=== PATIENT | male | born 1950 | race Caucasian/White ===

== ENCOUNTER → 2017-10-16 | Outpatient (CLI) | payer OTHER ==
[~2017-10-16] MED LIST: ABAT250V; ACET325 PO; AMLO5 PO; AMOX875 PO; ASPI81CH PO; Augmentin 875-1 EACH PO; CARV6.25 PO; CLOP75 PO; CODACE60 PO; COLL250TO TOP; Cubicin500 MG/VIA IV; DIPH50 PO; DOXY100 PO; EFFIENT10 MG PO; EFFIENT5 MG PO; EZET10; EZET10 PO; GABA400 PO; HUMULIN N100 UNIT/1 SQ; HYDCHL25 PO; HYDCOR2.5B; HYDR10 PO; Humalog100 UNIT/1 SC; Humulin R500 UNIT/1 SC; IBUP200; INS70/30PN SC; INSLIS75I; INSULANPEN SC; IRBE150 PO; K-Dur20 MEQ PO; LEVO750 PO; LIDO2L MM; Lantus100 UNIT/1 SQ; MELA3; METF500C PO; METR500 PO; MORP15ER PO; MORP30 PO; MORP30ER PO; MORP50ER PO; MORP60ER PO; MORPHINE SULFATE ER PO; NAC600 MG PO; NATTOKINASE; NITR.4SL SL; NITR100CA PO; Novolin R100 UNIT/M; OMEP40CA12 PO; PANT40 PO; SACC250C; TAMS.4ER; TYLECOD3; VALS80; WHEELCHAIR USE
== END | disposition home or self-care (01) ==
LOC: LAB 10:04
DX: N39.0 Urinary tract infection, site not specified (principal)
CPT/HCPCS: 87086

== ENCOUNTER → 2018-02-25 | Outpatient (CLI) | payer OTHER ==
[2018-02-25 16:32] LABS: Source, Urine Clean Catch
[2018-02-25 19:04] LABS: Appearance, Urine Hazy (Clear); Bilirubin, Urine Neg (Neg); Blood, Urine Neg (Neg); Color, Urine Yellow (P-Yellow); Glucose Qualitative, Urine Neg (Neg); Ketones, Urine Neg (Neg); Leukocyte Esterase, Urine 3+ (Neg); Nitrite, Urine Neg (Neg); Protein, Urine 1+ (Neg); Specific Gravity, Urine 1.005 (1.003-1.022); Urobilinogen, Urine NORM (Normal)
[2018-02-25 19:26] LABS: White Blood Cells, Urine 50-100 /hpf (0-5)
[2018-02-25 19:27] LABS: Bacteria Many /hpf; Squamous Epithelial Cells Rare /hpf (Few)
== END | disposition home or self-care (01) ==
LOC: LAB SHORT 16:27 → LAB 16:27
PROVIDERS: Urology
DX: Z09 Encounter for follow-up examination after completed treatment for conditions other than malignant neoplasm (principal); Z87.440 Personal history of urinary (tract) infections
CPT/HCPCS: 81001; 87077; 87086; 87186

== ENCOUNTER 2018-03-03 11:50 | Day surgery (SDC) | payer OTHER ==
[~2018-03-03] VITALS: Ht 172.7 cm; Wt 95.8 kg
[~2018-03-03 11:50] MED LIST changes: -HUMULIN N100 UNIT/1 SQ; -TYLECOD3
[2018-03-03] MEDS ORDERED: HUMULIN N100 UNIT/1 SQ (12:48)
[2018-03-03] MEDS ORDERED: EZET10 PO (12:49)
[2018-03-03] MEDS ORDERED: TYLECOD3 (12:50)
[2018-03-03] MEDS ORDERED: MORP15ER PO (12:51)
== END 2018-03-03 14:43 | disposition home or self-care (01) ==
LOC: ORSCSDS 11:50
PROVIDERS: Internal Medicine Gastroenterology
PROC: 0DBH8ZX Excision of Cecum, Via Natural or Artificial Opening Endoscopic, Diagnostic (ICD-10-PCS; principal; 2018-03-03 13:00)
PROC: 0DBE8ZX Excision of Large Intestine, Via Natural or Artificial Opening Endoscopic, Diagnostic (ICD-10-PCS; principal; 2018-03-03 13:00)
PROC: 0DBL8ZX Excision of Transverse Colon, Via Natural or Artificial Opening Endoscopic, Diagnostic (ICD-10-PCS; principal; 2018-03-03 13:00)
PROC: 0DBK8ZX Excision of Ascending Colon, Via Natural or Artificial Opening Endoscopic, Diagnostic (ICD-10-PCS; principal; 2018-03-03 13:00)
DX: K59.00 Constipation, unspecified (principal); D12.2 Benign neoplasm of ascending colon; D12.3 Benign neoplasm of transverse colon; K63.5 Polyp of colon; K64.8 Other hemorrhoids; R10.31 Right lower quadrant pain; I25.10 Atherosclerotic heart disease of native coronary artery without angina pectoris; Z95.1 Presence of aortocoronary bypass graft; E10.9 Type 1 diabetes mellitus without complications; I73.9 Peripheral vascular disease, unspecified; I10 Essential (primary) hypertension; E78.5 Hyperlipidemia, unspecified; M79.7 Fibromyalgia; Z79.4 Long term (current) use of insulin; Z79.899 Other long term (current) drug therapy; K57.30 Diverticulosis of large intestine without perforation or abscess without bleeding
CPT/HCPCS: 82947; 88305; J1980; J7120

== ENCOUNTER → 2018-07-21 | Outpatient (CLI) | payer OTHER ==
[~2018-07-21] MED LIST changes: +HUMULIN N100 UNIT/1 SQ; +TYLECOD3
[2018-07-21 14:05] LABS: Source, Urine Catheter
[2018-07-21 19:15] LABS: White Blood Cells, Urine TNTC /hpf (0-5)
[2018-07-21 19:16] LABS: Bacteria Many /hpf; Oval Fat Bodies Rare /lpf; Renal Epithelial Rare /hpf (0-Rare); Squamous Epithelial Cells Few /hpf (Few); Transitional Epithelial Cells Few /hpf (0-Rare)
== END | disposition home or self-care (01) ==
LOC: LAB SHORT 14:00 → LAB 14:00 → LAB FUT 02-25 06:50
PROVIDERS: Physician Assistant
DX: Z09 Encounter for follow-up examination after completed treatment for conditions other than malignant neoplasm (principal); Z87.440 Personal history of urinary (tract) infections
CPT/HCPCS: 81015

== ENCOUNTER 2019-02-20 10:41 | Day surgery (SDC) | payer OTHER ==
[~2019-02-20] VITALS: Ht 172.7 cm; Wt 100.4 kg
[~2019-02-20 10:41] MED LIST changes: +BENADRYL25 MG PO; +Coq-10100 MG PO; +LISI20 PO; +LO-DOSE ASPIRIN81 MG PO; +ONDA4ODT MM; +Red Yeast Rice600 MG PO
--- NOTE | 2019-02-20 12:30 | NUR ---
PT STATES HIS MRSA HAS RESOLVED. NO LONGER TAKING MEDICATION FOR CONDITION. PROTOCOL ANSWERS ALL NEGATIVE FOR CONTACT PRECAUTIONS.
--- NOTE | 2019-02-20 12:32 | NUR ---
PT UP TO BATHROOM, USING WALKER PREVIOUSLY USED TO ENTER PREP/RECOVERY AREA. FELT FATIGUED AND WEAK (STATED TO STAFF AFTER RETURN TO BED). HR 102 BP 176/76; BOTH WITH MINOR INCREASE FROM EARLIER, ONLY. STATES THIS IS A REGULAR OCCURRENCE WITH HOSPITAL PRESENCE AND TOOK A LATE PREDNISONE DOSE AT 0535 HOURS THIS MORNING. TOOK HIS OWN BLOOD GLUCOSE = 237, UP FROM 159 AN HOUR AGO. SELF-MEDICATED WITH REGULAR INSULIN 4 UNITS SQ. REPORTED TO PICK-UP NURSE FOR PROCEDURE.
--- NOTE | 2019-02-20 18:51 | NUR ---
SHIFT SUMMARY ASSUMED CARE OF PT AT APPROX 1730 FROM [facility]. PT CAME TO PCU VIA BED AND ACCOMPLANIED BY HEART CENTER NURSE. PT VSS. R GROIN SITE ASSESSED WITH HEART CENTER NURSE AND VERIFIED CONSISTANT DRESSING AND SITE FINDINGS. PT STATES HE STRAIGHT CATHS HIMSELF AT HOME. THIS RN AND CUSTOMER COMPLAINT CLERK PERFORMED STRAIGHT CATH ON PT MAINTAINING STERILE TECHNIQUE AND PT VOIDED 650 CLEAR YELLOW URINE. LUNGS CLEAR TO AUSCULTATION BILAT. BUE PULSE PALP. PT A&OX4, CALL APPROPRIATELY, IS RESTING COMFORTABLY WITHOUT COMPLAINT AT THIS TIME. PT CAN BE DISCHARGED PENDING SUCCESSFUL RECOVERY FROM R GROIN SITE AT APPROX 1915. WILL CONTINUE TO MONITOR UNTIL REPORT GIVEN TO NOC RN. BED CURRENTLY IN LOWEST POSISTION, WHEELS LOCKED, CALL LIGHT IN REACH.
--- NOTE | 2019-02-20 20:02 | NUR ---
ASSUMED CARE OF PT @1900 FROM [facility]. PT VERY ANXIOUS TO BE DC'D, PT VERY IRITABLE WITH STAFF. UPON LOOKING OVER DC INSTRUCTUIONS, PT'S BLOOD THINNER EFFIENT NOT INCLUDED ON MED LIST. CALL MADE TO ANSWERING SERVICE FOR DR PENA. TO CALL BACK, NO RESPONSE. PT SIGNS DC INSTRUDCTIONS, IV REMOVED. PT ASKED TO WAIT UNTIL WWE RECEIVE WORD FROM REGARDING MEDICATION. PT LEAVES, DOES NOT WAIT. DR PENA CALLS, STATING TO CONTINUE MEDICATION PREASCRIBED IN THE AM. PT CALLED OVER TELEPHONE, TOLD WHAT SAID. PT TO START MEDICATION IN THE AM.
== END 2019-02-20 19:55 | disposition home or self-care (01) ==
LOC: MHTC 10:41 → PCU 15:48 → MHTC 19:55
DX: I73.9 Peripheral vascular disease, unspecified (principal); I87.2 Venous insufficiency (chronic) (peripheral); I25.10 Atherosclerotic heart disease of native coronary artery without angina pectoris; E10.42 Type 1 diabetes mellitus with diabetic polyneuropathy; I10 Essential (primary) hypertension; E78.5 Hyperlipidemia, unspecified; Z95.1 Presence of aortocoronary bypass graft; Z86.718 Personal history of other venous thrombosis and embolism; Z88.2 Allergy status to sulfonamides; Z88.5 Allergy status to narcotic agent; Z91.041 Radiographic dye allergy status; Z79.899 Other long term (current) drug therapy; Z79.82 Long term (current) use of aspirin; Z86.73 Personal history of transient ischemic attack (TIA), and cerebral infarction without residual deficits
CPT/HCPCS: 99152; 99153; C1724; C1725; C1760; C1769; C1884; C1887; C1894; C2623; J1200; J1644; J2250; J3010; J7030; Q9967

== ENCOUNTER → 2019-03-27 | Outpatient (CLI) | payer OTHER ==
[2019-03-27 18:24] LABS: Bilirubin, Urine Neg (Neg); Blood, Urine Neg (Neg); Glucose Qualitative, Urine 1+ (Neg); Ketones, Urine Neg (Neg); Leukocyte Esterase, Urine 2+ (Neg); Nitrite, Urine Neg (Neg); Protein, Urine 1+ (Neg); Urobilinogen, Urine NORM (Normal); pH, Urine 6.5 (5.0-8.0)
[2019-03-27 18:40] LABS: Appearance, Urine Hazy (Clear); Color, Urine Yellow (P-Yellow)
[2019-03-27 18:41] LABS: White Blood Cells, Urine 25-50 /hpf (0-5)
[2019-03-27 18:42] LABS: Bacteria Many /hpf; Red Blood Cells, Urine 0-2 /hpf (0-2); Squamous Epithelial Cells Rare /hpf (Few)
== END | disposition home or self-care (01) ==
LOC: LAB SHORT 10:18 → LAB 10:18
PROVIDERS: Physician Assistant
DX: Z09 Encounter for follow-up examination after completed treatment for conditions other than malignant neoplasm (principal); Z87.440 Personal history of urinary (tract) infections
CPT/HCPCS: 81001; 87077; 87086; 87186

== ENCOUNTER → 2019-04-22 | Outpatient (CLI) | payer OTHER ==
[2019-04-22 16:44] LABS: Source, Urine Clean Catch
[2019-04-22 19:35] LABS: Appearance, Urine Hazy (Clear); Bilirubin, Urine Neg (Neg); Blood, Urine 1+ (Neg); Color, Urine Yellow (P-Yellow); Glucose Qualitative, Urine Neg (Neg); Ketones, Urine Neg (Neg); Leukocyte Esterase, Urine 3+ (Neg); Nitrite, Urine Neg (Neg); Protein, Urine 1+ (Neg); Urobilinogen, Urine NORM (Normal)
[2019-04-22 20:08] LABS: White Blood Cells, Urine TNTC /hpf (0-5)
[2019-04-22 20:09] LABS: Bacteria Many /hpf; Red Blood Cells, Urine Not Seen /hpf (0-2); Squamous Epithelial Cells Mod /hpf (Few)
== END ==
LOC: LAB 15:13 → LAB SHORT 15:13
PROVIDERS: Family Medicine
DX: N39.0 Urinary tract infection, site not specified (principal)
CPT/HCPCS: 81001

== ENCOUNTER → 2019-05-26 | Outpatient (CLI) | payer OTHER ==
[2019-05-26 19:07] LABS: Appearance, Urine Hazy (Clear); Bilirubin, Urine Neg (Neg); Blood, Urine 1+ (Neg); Color, Urine Yellow (P-Yellow); Glucose Qualitative, Urine Neg (Neg); Ketones, Urine Neg (Neg); Leukocyte Esterase, Urine 3+ (Neg); Nitrite, Urine Neg (Neg); Protein, Urine Neg (Neg); Specific Gravity, Urine 1.005 (1.003-1.022); Urobilinogen, Urine NORM (Normal)
[2019-05-26 19:14] LABS: Red Blood Cells, Urine 0-2 /hpf (0-2); White Blood Cells, Urine 50-100 /hpf (0-5)
[2019-05-26 19:15] LABS: Bacteria Many /hpf; Squamous Epithelial Cells Few /hpf (Few)
== END ==
LOC: LAB 12:05 → LAB SHORT 12:05
PROVIDERS: Family Medicine
DX: N39.0 Urinary tract infection, site not specified (principal)
CPT/HCPCS: 81001; 87077; 87086; 87186

== ENCOUNTER → 2020-01-13 | Outpatient (CLI) | payer OTHER ==
[2020-01-13 19:46] LABS: Appearance, Urine Clear (Clear); Bilirubin, Urine Neg (Neg); Blood, Urine Neg (Neg); Color, Urine Yellow (P-Yellow); Glucose Qualitative, Urine 3+ (Neg); Ketones, Urine Neg (Neg); Leukocyte Esterase, Urine 2+ (Neg); Nitrite, Urine Neg (Neg); Protein, Urine 1+ (Neg); Urobilinogen, Urine NORM (Normal); pH, Urine 6.5 (5.0-8.0)
[2020-01-13 19:54] LABS: Red Blood Cells, Urine 0-2 /hpf (0-2); White Blood Cells, Urine 25-50 /hpf (0-5)
[2020-01-13 19:55] LABS: Bacteria Rare /hpf; Squamous Epithelial Cells Rare /hpf (Few); Transitional Epithelial Cells Rare /hpf (0-Rare)
== END | disposition home or self-care (01) ==
LOC: LAB SHORT 13:50 → OLS 13:50
PROVIDERS: Urology
DX: N39.0 Urinary tract infection, site not specified (principal)
CPT/HCPCS: 81001; 87077; 87086; 87186

== ENCOUNTER 2020-01-20 00:20 | Day surgery (SDC) | payer OTHER ==
[~2020-01-20 00:20] MED LIST changes: +ACETAMINOPHEN-CO5 ML PO; +FREESTYLE LIBR1 EAC2 MC; +Lisinopril-Hct1 EAC4 PO; +ONDA4; +ZESTORETIC 20-121 EA PO
[2020-01-20 14:47] LABS: Creatinine, Blood 1.08 mg/dL (0.60-1.20); Gentamicin, Trough 1.7 ug/mL (0.0-1.9)
--- NOTE | 2020-01-20 15:24 | NUR ---
SPOKE WITH PHARMASIST ABOUT PTS LAB VALUES. PT CHOSE TO COME IN DAILY FOR A LOWER DOSE OF GENTAMYACIN. PT TO GO HOME WITH NO DOSE THIS PM.
== END 2020-01-20 15:12 | disposition home or self-care (01) ==
LOC: ATC 00:20
PROVIDERS: Urology
DX: N39.0 Urinary tract infection, site not specified (principal); Z88.2 Allergy status to sulfonamides; Z88.8 Allergy status to other drugs, medicaments and biological substances; Z88.1 Allergy status to other antibiotic agents; Z91.041 Radiographic dye allergy status; N31.2 Flaccid neuropathic bladder, not elsewhere classified; N52.8 Other male erectile dysfunction
CPT/HCPCS: 80170; 82565; J1580

== ENCOUNTER 2020-01-21 00:11 | Day surgery (SDC) | payer OTHER | END 2020-01-21 15:23 | disposition home or self-care (01) | LOC: ATC 00:11 | DX: N39.0 Urinary tract infection, site not specified (principal); N31.9 Neuromuscular dysfunction of bladder, unspecified; N52.8 Other male erectile dysfunction; Z79.4 Long term (current) use of insulin; Z79.82 Long term (current) use of aspirin; Z79.891 Long term (current) use of opiate analgesic; Z79.899 Other long term (current) drug therapy; Z87.440 Personal history of urinary (tract) infections; Z88.2 Allergy status to sulfonamides; Z88.3 Allergy status to other anti-infective agents; Z88.5 Allergy status to narcotic agent; Z88.6 Allergy status to analgesic agent | CPT/HCPCS: 96365; J1580 ==

== ENCOUNTER 2020-01-23 00:41 | Day surgery (SDC) | payer OTHER | END 2020-01-23 23:26 | disposition home or self-care (01) | LOC: ATC 00:41 | DX: N39.0 Urinary tract infection, site not specified (principal); Z88.2 Allergy status to sulfonamides; N31.2 Flaccid neuropathic bladder, not elsewhere classified; N52.8 Other male erectile dysfunction; Z88.5 Allergy status to narcotic agent; Z88.8 Allergy status to other drugs, medicaments and biological substances; Z88.1 Allergy status to other antibiotic agents; Z91.041 Radiographic dye allergy status ==

== ENCOUNTER 2020-01-24 00:19 | Day surgery (SDC) | payer OTHER ==
[2020-01-24 14:53] LABS: Creatinine, Blood 1.02 mg/dL (0.60-1.20); Gentamicin, Trough 0.4 ug/mL (0.0-1.9)
== END 2020-01-24 16:25 | disposition home or self-care (01) ==
LOC: ATC 00:19
PROVIDERS: Urology
DX: N39.0 Urinary tract infection, site not specified (principal); N31.2 Flaccid neuropathic bladder, not elsewhere classified; N52.8 Other male erectile dysfunction; Z88.5 Allergy status to narcotic agent; Z88.2 Allergy status to sulfonamides; Z88.8 Allergy status to other drugs, medicaments and biological substances; Z88.1 Allergy status to other antibiotic agents; Z91.041 Radiographic dye allergy status
CPT/HCPCS: 80170; 82565; J1580

== ENCOUNTER 2020-01-25 00:06 | Day surgery (SDC) | payer OTHER | END 2020-01-25 23:02 | disposition home or self-care (01) | LOC: ATC 00:06 | DX: N39.0 Urinary tract infection, site not specified (principal); E11.9 Type 2 diabetes mellitus without complications; Z79.4 Long term (current) use of insulin; Z88.5 Allergy status to narcotic agent; Z88.2 Allergy status to sulfonamides; Z88.8 Allergy status to other drugs, medicaments and biological substances; Z88.1 Allergy status to other antibiotic agents; Z91.041 Radiographic dye allergy status; N31.2 Flaccid neuropathic bladder, not elsewhere classified; Z87.440 Personal history of urinary (tract) infections; N52.8 Other male erectile dysfunction ==

== ENCOUNTER 2020-01-27 02:00 | Day surgery (SDC) | payer OTHER | END 2020-01-27 22:45 | disposition home or self-care (01) | LOC: ATC 02:00 | DX: N39.0 Urinary tract infection, site not specified (principal); E11.9 Type 2 diabetes mellitus without complications; N31.2 Flaccid neuropathic bladder, not elsewhere classified; N52.8 Other male erectile dysfunction; Z88.8 Allergy status to other drugs, medicaments and biological substances; Z88.2 Allergy status to sulfonamides; Z88.1 Allergy status to other antibiotic agents ==

== ENCOUNTER → 2021-03-21 | Outpatient (CLI) | payer OTHER | END | disposition home or self-care (01) | LOC: LAB 18:00 → LAB SHORT 18:00 | DX: L97.515 Non-pressure chronic ulcer of other part of right foot with muscle involvement without evidence of necrosis (principal) | CPT/HCPCS: 87070; 87075; 87077; 87186; 87205 ==

== ENCOUNTER 2021-09-01 00:20 | Inpatient (IN) | payer OTHER, MEDICARE ==
[~2021-09-01] VITALS: Ht 172.7 cm; Wt 88.4 kg
[~2021-09-01 00:20] MED LIST changes: +MORPHINE SULFAT15 M1 PO; -ONDA4; +ONDA4 PO; -ZESTORETIC 20-121 EA PO
[2021-09-01 00:35] LABS: Calcium, Ionized (POC) 1.15 mmol/L (1.10-1.46); Chloride (POC) 96 mmol/L (98-108); Creatinine (POC) 1.4 mg/dL (0.8-1.3); Glucose (ISTAT POC) 439 mg/dL (70-99); Potassium (POC) 4.7 mmol/L (3.5-5.5); Sodium (POC) 129 mmol/L (135-148); Total CO2 (POC) 25 mmol/L (21-32)
[2021-09-01 00:43] LABS: BASOPHILS ABSOLUTE AUTO 0.03 K/mm3 (0.00-0.23); BASOPHILS PERCENT AUTO 0 % (0-2); EOSINOPHILS ABSOLUTE AUTO 0.25 K/mm3 (0.00-0.68); EOSINOPHILS PERCENT AUTO 3 % (0-6); IMMATURE GRAN ABSOLUTE AUTO 0.04 K/mm3 (0.00-0.10); IMMATURE GRAN PERCENT AUTO 1 % (0-1); LYMPHOCYTES ABSOLUTE AUTO 2.64 K/mm3 (0.84-5.20); LYMPHOCYTES PERCENT AUTO 31 % (21-46); MONOCYTES ABSOLUTE AUTO 0.83 K/mm3 (0.16-1.47); MONOCYTES PERCENT AUTO 10 % (4-13); Mean Corpuscular HGB 30.2 pg (26.0-34.0); Mean Corpuscular HGB Conc 33.3 g/dL (31.5-36.5); Mean Corpuscular Volume 91 fL (80-100); Mean Platelet Volume 8.6 fL (9.1-12.4); NEUTROPHILS ABSOLUTE AUTO 4.72 K/mm3 (1.96-9.15); NEUTROPHILS PERCENT AUTO 55 % (41-73); Platelet Count 288 K/mm3 (150-400); RDW Coefficient Variation 12.7 % (11.7-14.2); RDW Standard Deviation 42.4 fL (35.1-46.3); Red Blood Cell Count 4.96 M/mm3 (4.30-5.90); White Blood Cell Count 8.51 K/mm3 (4.00-11.30)
[2021-09-01 00:52] LABS: PCO2 Arterial 46.2 mmHg (35-45); PO2 Arterial 64.8 mmHg (80-100); pH Blood Arterial 7.34 (7.35-7.45)
[2021-09-01 00:57] LABS: D-Dimer, Quantitative 1.05 mg/L FEU (0.00-0.52)
[2021-09-01 01:03] LABS: Albumin, Blood 3.2 g/dL (3.4-5.0); Albumin/Globulin Ratio 0.7 (0.8-1.8); Bilirubin, Total 0.3 mg/dL (0.1-1.0); Bun/Creatinine Ratio 18.2 (12.0-20.0); Calcium, Blood 8.6 mg/dL (8.5-10.1); Creatinine, Blood 1.32 mg/dL (0.60-1.20); Globulin, Blood 4.7 g/dL (2.2-4.0); Potassium, Blood 4.6 mmol/L (3.5-5.5); Total Protein, Blood 7.9 g/dL (6.4-8.2); Troponin I 0.044 ng/mL (0.000-0.040)
[2021-09-01 01:34] LABS: Anti-Xa UFH, PHA Monitoring <0.10 IU/mL
[2021-09-01] MEDS ORDERED: RANOLAZINE ER500 M2 PO (01:35)
[2021-09-01] MEDS ORDERED: ISOSORBIDE MONO30 MG PO (01:36)
--- NOTE | 2021-09-01 04:25 | NUR ---
PT ARRIVES FROM EMERGENCY DEPARTMENT, WEARING CPAP SET AT 10 WITH 35% FIO2. PT STATES HIS PAIN, THAT COMES FROM HIS LEFT SHOULDER. PT VERY TALKATIVE, OPINIONATED. CONCERNED FOR HIS HE CARES FOR HER AT HOME. LEGS WITH STASIS ULCER SKIN, RIGHT FOOT WITH WOUND THAT IS CARING FOR. HEPARIN GTT INFUSING AT 15U/KG/HR. HOOD PATENT WITH >1L OUTPUT. PT UNDERSTANDS HE IS CURRENTLY NPO FOR PROCEDURE LATER THIS AM.
[2021-09-01 04:36] LABS: SARS-Cov-2 (COVID-19) PCR, MMC NEGATIVE (NEGATIVE)
[2021-09-01 06:36] LABS: BASOPHILS ABSOLUTE AUTO 0.03 K/mm3 (0.00-0.23); BASOPHILS PERCENT AUTO 0 % (0-2); EOSINOPHILS ABSOLUTE AUTO 0.03 K/mm3 (0.00-0.68); EOSINOPHILS PERCENT AUTO 0 % (0-6); Hematocrit 37.5 % (37.0-53.0); Hemoglobin 12.9 g/dL (13.5-17.5); IMMATURE GRAN ABSOLUTE AUTO 0.03 K/mm3 (0.00-0.10); IMMATURE GRAN PERCENT AUTO 0 % (0-1); LYMPHOCYTES PERCENT AUTO 14 % (21-46); MONOCYTES ABSOLUTE AUTO 0.87 K/mm3 (0.16-1.47); MONOCYTES PERCENT AUTO 11 % (4-13); Mean Corpuscular HGB 30.6 pg (26.0-34.0); Mean Corpuscular HGB Conc 34.4 g/dL (31.5-36.5); Mean Corpuscular Volume 89 fL (80-100); Mean Platelet Volume 8.6 fL (9.1-12.4); NEUTROPHILS ABSOLUTE AUTO 5.76 K/mm3 (1.96-9.15); NEUTROPHILS PERCENT AUTO 74 % (41-73); Platelet Count 227 K/mm3 (150-400); RDW Coefficient Variation 12.6 % (11.7-14.2); RDW Standard Deviation 41.4 fL (35.1-46.3); Red Blood Cell Count 4.22 M/mm3 (4.30-5.90); White Blood Cell Count 7.82 K/mm3 (4.00-11.30)
--- NOTE | 2021-09-01 06:48 | NUR ---
CALLED IN TO CHECK ON THE STATUS OF THE PATIENT, RELAYING THAT HE WILL NOT BE SEEING HIM TODAY THAT WILL BE IN. THEN PHONED IN FOR AN UPDATE ON THE PATIENT, ASKING FOR THE ECHO TO BE DONE FIRST THING AND SHE WOULD BE IN TO EVALUATE THE PATIENT. THIS INFORMATION SHARED WITH DILEEP, HE IS ANXIOUS ABOUT HAVING A PROCEDURE DONE, BUT HE SAYS HE HAS BEAT THE ODDS ON SEVERAL OCCASIONS T/O HIS LIFE.
[2021-09-01 07:08] LABS: Alanine Aminotransfer (ALT/SGP 26 U/L (12-78); Albumin, Blood 2.6 g/dL (3.4-5.0); Albumin/Globulin Ratio 0.7 (0.8-1.8); Alk Phos 89 U/L (50-136); Anion Gap 6 mmol/L (6-16); Aspartate Aminotrans (AST/SGOT 122 U/L (12-37); Bilirubin, Total 0.3 mg/dL (0.1-1.0); Blood Urea Nitrogen 26 mg/dL (8-24); CO2, Blood 27 mmol/L (21-32); Calcium, Blood 8.4 mg/dL (8.5-10.1); Chloride, Blood 99 mmol/L (98-108); Creatinine, Blood 1.18 mg/dL (0.60-1.20); Globulin, Blood 3.9 g/dL (2.2-4.0); Glomerular Filtration Rate >60 (60-); Glucose, Blood 145 mg/dL (70-99); Potassium, Blood 4.7 mmol/L (3.5-5.5); Sodium, Blood 132 mmol/L (136-145); Total Protein, Blood 6.5 g/dL (6.4-8.2)
--- NOTE | 2021-09-01 07:30 | NUR ---
ASSUMPTION OF CARE PT ALERT AND ORIENTED. PT CURRENTLY ON CPAP WITH FIO2 35%. HOOD REMAINS IN PLACE DRAINING CLEAR/YELLOW URINE. PT DENIES CURRENT L SHOULDER OR CHEST PAIN. PT HAS DRESSING ON R FOOT. PT STS HE HAS HAD A WOUND FOR "AWHILE". SEE SHIFT ASSESSMENT.
--- NOTE | 2021-09-01 13:34 | NUR ---
JAVA ENGINEER JAVA ENGINEER STAFF TO ROOM. PT TAKEN TO JAVA ENGINEER VIA GURMACY WITH FOLLOWING.
--- NOTE | 2021-09-01 14:30 | NUR ---
PT BACK TO ROOM HYDRO MECHANIC STAFF RETURN PT BACK TO ROOM. PT IS TACHYPNEIC AND ON BIPAP. PT HYPERTENSIVE WITH SBP IN 200S. PT ANXIOUS AND EXPRESSES "WANTING TO GET HIS BREATHING DOWN". PT PALE, SKIN IS CLAMMY AND COOL TO TOUCH. DR SIU AT BEDSIDE FOR EVAL, ORDERS RECEIVED. PT MEDICATED WITH ATIVAN, NITRO GGT STARTED. EKG DONE. ULTRASOUND PERFORMED BY DR SIU. PER HYDRO MECHANIC STAFF, PT BECAME SOB AND SATS DECREASED AND BIPAP WAS NEEDED. PROCEDURE WAS NOT PERFORMED. PLAN TO RESCHEDULE TOMORROW. PT BP DECREASED TO NORMOTENSIVE RANGE WITH NITRO GTT CONTINUING. PT RESPIRATORY RATE HAS DECREASED. DO NOT TREND TROPONINS PER DR BOOTH, NO ADDITIONAL ORDERS AT THIS TIME.
[2021-09-01 16:50] LABS: Base Excess Venous -0.7 mmol/L; PCO2 Venous 55.3 mmHg (38-42); PO2 Venous 33.8 mmHg (38-42)
[2021-09-01 16:51] LABS: pH Blood Venous 7.28 (7.34-7.37)
--- NOTE | 2021-09-01 17:35 | NUR ---
SHIFT SUMMARY PT REMAINS ON BIPAP 18/10 WITH FIO2 30%. PT ON NITRO GTT AT 2.5MCG/HR AND HEPARIN AT 14UNITS/HR. PT WILL NOT OPEN EYES, BUT WITH STERNAL RUB PT YELLS OUT AND REACHES TOWARD CHEST. PT THEN FOLLOWS COMMANDS, ANSWERS QUESTIONS BY NODDING/SHAKING HEAD BUT CONTINUES TO REFUSE TO OPEN EYES. PT DENIES PAIN OR DISCOMFORT AND NODS HEAD THAT HE IS FEELING BETTER. RR REMAINS IN 20S-30S. HOOD CONTINUES TO DRAIN CLEAR/YELLOW URINE. WILL REPORT TO ONCOMING RN.
--- NOTE | 2021-09-01 21:53 | NUR ---
UPDATE: LAB LAB HAS NOT BEEN BY TO DRAW 2130 BMP, SO FOLLOWED UP WITH LAB WHO STATES THEY ARE RUNNING BEHIND AND SHOULD BE HERE TO DRAW IT SOON.
[2021-09-01 22:29] LABS: Bun/Creatinine Ratio 21.9 (12.0-20.0); Calcium, Blood 9.4 mg/dL (8.5-10.1); Creatinine, Blood 1.37 mg/dL (0.60-1.20)
[2021-09-01 22:32] LABS: Potassium, Blood 4.2 mmol/L (3.5-5.5)
--- NOTE | 2021-09-01 22:48 | NUR ---
ASSUME CARE: PT IS LYING IN BED WITH EYES CLOSED AND APPEARS TO BE RESTING. HE AROUSES TO VOICE, WILL OPEN HIS EYES BRIEFLY, DOES FOLLOW COMMANDS, AND WILL NOD HIS HEAD TO QUESTIONS. HE IS ON BIPAP 18/10 AT 30% AND SATING >95%. HR IS RUNNING IN THE 80-90'S AND BP WNL. HEPARIN INFUSING AT 14UNITS/KG/HR AND NITRO AT 5MCG/MIN. HOOD IN PLACE DRAINING CLEAR YELLOW URINE TO GRAVITY. HIS LEFT GREATER TOE IS MISSING AND HAS A WOUND ON THE RIGHT FOOT WITH GAUZE DRESSING INTACT. PLAN TO GO BACK TO [facility]TERPR[facility] APPLICATION ADMINISTRATOR IN THE AM. SEE SHIFT ASSESSMENT FOR DETAILS.
--- NOTE | 2021-09-02 01:15 | NUR ---
UPDATE: ANXIETY AND BS PT IS COMPLAINING OF ANXIETY AND CLAUSTROPHOBIA W/ THE BIPAP MASK. HE ALSO STATES THE FENTANYL DID NOT HELP WITH HIS ABDOMINAL PAIN AND HE IS NOW HAVING LEFT ARM PAIN. PT CHECKED HIS BLOOD SUGAR ON HIS OWN IMPLANTED GLUCCOMETER AND IT SHOWED 407. WHEN CHECKED ON OUR MACHINE, IT SHOWED 378. SPOKE WITH DR. MONTENEGRO WHO ORDERED A 1 TIME DOES OF ATIVAN 1MG. SHE STATES SHE WILL REVIEW THE CHART BEFORE ORDERING BLOOD SUGAR COVERAGE.
--- NOTE | 2021-09-02 02:36 | NUR ---
UPDATE: EKG CHANGES NOTICED INCREASED ST ELEVATION SO PLACED PRN EKG FOR RHTHYM CHANGES ORDER PER RN [facility]. EKG READS "MARKED ST ABNORMALILTY, POSSIBLE INFEROLATERAL SUBENDOCARDIAL INJURY". INFORMED DR. BOOTH WHO STATES THE PLAN IS STILL TO TAKE PT BACK TO THE DENT REMOVER IN THE AM. SHE GAVE ORDERS FOR ATIVAN 1MG PRN ANXIETY Q4HRS.
[2021-09-02 03:53] LABS: BASOPHILS ABSOLUTE AUTO 0.01 K/mm3 (0.00-0.23); BASOPHILS PERCENT AUTO 0 % (0-2); EOSINOPHILS ABSOLUTE AUTO 0.04 K/mm3 (0.00-0.68); EOSINOPHILS PERCENT AUTO 0 % (0-6); Hematocrit 42.3 % (37.0-53.0); Hemoglobin 14.3 g/dL (13.5-17.5); IMMATURE GRAN ABSOLUTE AUTO 0.07 K/mm3 (0.00-0.10); IMMATURE GRAN PERCENT AUTO 1 % (0-1); LYMPHOCYTES PERCENT AUTO 5 % (21-46); MONOCYTES PERCENT AUTO 9 % (4-13); Mean Corpuscular HGB 30.4 pg (26.0-34.0); Mean Corpuscular HGB Conc 33.8 g/dL (31.5-36.5); Mean Corpuscular Volume 90 fL (80-100); Mean Platelet Volume 8.8 fL (9.1-12.4); NEUTROPHILS PERCENT AUTO 85 % (41-73); Platelet Count 223 K/mm3 (150-400); RDW Coefficient Variation 12.8 % (11.7-14.2); RDW Standard Deviation 41.7 fL (35.1-46.3); Red Blood Cell Count 4.71 M/mm3 (4.30-5.90); White Blood Cell Count 10.32 K/mm3 (4.00-11.30)
[2021-09-02 04:08] LABS: Bun/Creatinine Ratio 23.2 (12.0-20.0); Calcium, Blood 8.8 mg/dL (8.5-10.1); Creatinine, Blood 1.38 mg/dL (0.60-1.20); Magnesium, Blood 1.7 mg/dL (1.6-2.4); Potassium, Blood 4.2 mmol/L (3.5-5.5)
--- NOTE | 2021-09-02 06:28 | NUR ---
UPDATE: CHEST PAIN PT IS COMPLAINING OF CHEST PAIN SO INCREASED NITRO TO 15MCG/MIN. SPOKE WITH DR. BOOTH WHO STATES TO GIVE 1 NITRO SUBLINGUAL, ATIVAN 1MG, AND A STAT EKG.
--- NOTE | 2021-09-02 06:46 | NUR ---
SHIFT SUMMARY: PT LYING IN BED W/ EYES CLOSED WEARING BIPAP MASK W/ SETTINGS AT 18/10 AT 30% SATING 95%. HE IS EASILY AROUSABLE AND A&0 X4. AT AROUND 0625 HE COMPLAINED OF CHEST PAIN SO NITRO WAS INCREASED TO 15MCG/MIN AND HEPARIN CONTINUES TO INFUSE AT 14UNIT/KG/HR. SPOKE WITH DR. BOOTH WHO ORDERED A STAT EKG AND TO GIVE ATIVAN 1MG AND NITRO SUBLINGUAL. HR IS IN THE LOW 100'S AND BP IS 108/49. HOOD IN PLACE AND STILL DRAINING CLEAR YELLOW URINE TO GRAVITY. PLAN IS TO RETURN TO THE MANAGER TEST AT 0800. WILL REPORT TO ONCOMING RN WHEN AVAILABLE.
--- NOTE | 2021-09-02 07:15 | NUR ---
ASSUMPTION OF CARE PT REMAINS ON BIPAP 18/10 WITH FIO2 30%. PT TOLERATING MASK WELL. PT RECEIVING HEPARIN 14UNITS/HR ADJUSTED PER PHARMACY, AND NITRO GTT 15MCG/MIN. CONTINUOUS CARDIAC MONITORING SHOWS INCREASE IN ST ELEVATION. SBP 130S. PT DENIES PAIN OR DISCOMFORT AT THIS TIME. DR BOOTH AT BEDSIDE FOR EVAL. DOPPLER USED FOR POPLITEAL PULSES. UNABLE TO DETECT AUDIBLE DOPPLER PEDAL PULSES. PROVIDER EXPECTS PROCEDURE TO START AROUND 08:00.
--- NOTE | 2021-09-02 08:00 | NUR ---
GLUCOSE & EXECUTIVE VICE PRESIDENT AND CHIEF FINANCIAL OFFICER CBG >400 THIS AM. CALLED ATTENDING PHYSICIAN FOR INCREASED INSULIN ORDERS. ORDERS RECEIVED AND PT MEDICATED PER EMAR. EXECUTIVE VICE PRESIDENT AND CHIEF FINANCIAL OFFICER AT BEDSIDE TO TAKE PT. PT REMAINS A&O, ANSWERS QUESTIONS AND FOLLOWS COMMANDS. HEPARIN AND NITRO TO GO WITH PT. PT LEFT DEPARTMENT APPROX 08:10.
--- NOTE | 2021-09-02 13:30 | NUR ---
Pt arrived back from manager labor delivery approx 1130. Pt arrived on BiPAP 16/8 and 30% FiO2. Stable RR and tidal volume. Pt responsive to verbal stimulus. Pt arrived with balloon pump in place to right groin 1:2 assist with augmentation at 170 mmHg. Connected to NIBP and IBP. Titrated augmentation down until BP stable as pt was hypertensive. Per report from manager labor delivery staff, patient received KARINA to OM and plan for pt to go back to manager labor delivery on Saturday for additional intervention to LAD. Dr Salas in to see patient. Provider ordered precedex to assist patient to stay calm, regading pt's activity limitations r/t cath and balloon pump. In addition to IABP to right groin, pt has site to left groin that was reportedly used for PCI. Reportly has perclose closure device. Dressed with herb patch and tegaderm. No bleeding or hematoma to site. Scant bleeding to right groin, no hematoma, also dressed with tegaderm and herb patch. Color, sensation, pulses, capillary refill equal BUE and BLE. BLE assessment unchanged since AM assessment- Pedal pulses per doppler and palpable popliteal. Dr Pineda in to see patient at this time. EKG obtained and compared to EKG obtained this AM, by Dr Pineda. Provider stated to refrain from heparin as she is considering pulling balloon pump. Order obtained to jw jorge.
--- NOTE | 2021-09-02 14:40 | NUR ---
After Dr Pineda in to see patient, pt became hypotensive. Precedex stopped. Pt required increased support from balloon pump. Provider notified. Hypotension resolved while provider in room. Pt on 1:3 support, plan to assess if removal is appropriate.
--- NOTE | 2021-09-02 17:15 | NUR ---
BALLOON PUMP REMOVAL 16:20 DR BOOTH AT BEDSIDE. SUPPLIES GATHERED AND PT POSITIONED FOR REMOVAL OF BALLOON PUMP. 16:26 PT MEDICATED WITH 1MG VERSED. DR BOOTH ADMINISTERED LIDOCAINE NEAR INSERTION SITE. 16:38 BALLOON PUMP REMOVED AND PRESSURE BEING HELD BY DR BOOTH. BALLOON IS INTACT. 16:44 PT RESTLESS AND MOVING EXTREMITIES. ADDITIONAL 1MG VERSED GIVEN. 17:00 NO LONGER HOLDING PRESSURE, SITE IS NOT BLEEDING. GRETCHEN AND TRANSPARENT DRESSING IN PLACE. SURROUNDING AREA SOFT TO PALPATION, NO SIGNS OF OOZING.
--- NOTE | 2021-09-02 18:19 | NUR ---
SHIFT SUMMARY NEURO: PT IS A&OX4. ANSWERS QUESTIONS APPROPRIATELY AND FOLLOWS COMMANDS. PT DENIES ANY PAIN AT THIS TIME. PT HAS COUGH, GAG, AND SWALLOW. MUSCULOSKELETAL: PT MOVES ALL EXTREMITIES. PT INFORMED TO KEEP R LEG STRAIGHT AND RESIST FLEXING HIP. PT STS UNDERSTANDING. PT HAS NOT BEEN OUT OF BED SINCE PROCEDURE. PT MOVES UPPER EXTREMITIES AND IS A MODERATE ASSIST WHEN REPOSITIONING WITH STAFF. RESP: PLACED BACK ON BIPAP AT APPROX 17:30 WITH SETTINGS 16/8 WITH FIO2 30%. PT TOLERATING WELL. SPO2 >92%. LUNGS ARE CLEAR AND DIMINISHED THROUGHOUT. PT OCCASIONALLY HAS NON-PRODUCTIVE COUGH. CV: BALLOON PUMP REMOVED AT 16:38. R GROIN SITE HAS GRETCHEN AND TRANSPARENT DRESSING IN PLACE. SURROUNDING AREA IS SOFT TO PALPATION, NO SIGNS OF OOZING. L GROIN SITE HAS GRETCHEN AND TRANSPARENT DRESSING IN PLACE WITH SCANT AMOUNT OF OOZING. SURROUNDING AREA IS SOFT TO PALPATION. HR HAS BEEN 90S-100S. MONITOR SHOWS SINUS RHYTHM WITH ST DEPRESSION. RADIAL PULSES ARE STRONG BILATERALLY. POPLITEAL PULSES PALPABLE. PEDAL PULSES AUDIBLE WITH DOPPLER. BLE COLORATION AND SENSATION REMAINS EQUAL AND UNCHANGED FROM PREVIOUS ASSESSMENT. GI: BOWEL TONES ARE ACTIVE. PT PREVIOUSLY REPORTS FEELING CONSTIPATED. ORDER RECEIVED FOR MIRALAX AND DOCUSATE. PT ON BEDPAN TWICE, PRODUCED 2 SMALL FORMED BMS. ABDOMEN IS SOFT. : HOOD REMAINS IN PLACE DRAINING CLEAR/YELLOW URINE. PT RECEIVING LASIX AND PRODUCING ADEQUATE AMOUNT OF URINE. SKIN: PT WARM TO TOUCH. BLE DISCOLORATION IS "NORMAL" FOR PT. SKIN REMAINS DRY/PEELING. ALL TOES REMOVED ON R FOOT. SMALL HEALING ULCER ON BOTTOM OF R FOOT. PHOTO IN CHART FROM PREVIOUS SHIFT. CBG REMAINS >300 THROUGHOUT SHIFT. HOSPITALIST AWARE. CONTINUE TO CHECK CBG Q2HRS. CURRENTLY NPO DUE TO LETHARGY POST ATIVAN ADMINISTRATION. ADVANCE TO ADA DIET WHEN APPROPRIATE.
--- NOTE | 2021-09-02 19:00 | NUR ---
ASSUME CARE: PT LYING IN BED W/ EYES CLOSED AND KEEPS ATTEMPTING TO REMOVE BIPAP MASK. SETTINGS ARE 16/8 @ 30% AND SATING 96%. HE DOES DESAT TO 86% WHEN REMOVED TO GET A SIP OF WATER. SPOKE WITH HOSPITALIST TO GET ADDITIONAL ORDERS FOR ANXIETY MEDS. HR IN 110'S AND SBP IN 160'S. HE STATES HE DOES NOT WANT TO WEAR THE BIPAP MASK AND AFTER EDUCATION TO WHY HE WAS REQUIRING THE MASK HE YELLS AT "SHUT UP AND GET ME MEDICATION". HOOD IN PLACE DRAINING CLEAR YELLOW URINE. CAN HAVE ADA DIET TOLERATED. BILAT GROIN SITES ARE SOFT WITH CLEAR DRESSINGS OVER GAUZE THAT ARE CLEAN, DRY, AND INTACT. NO PAIN AT THE SITE BUT PT COMPLAINS OF 10/10 BACK PAIN. MISSING GREAT TOE ON LEFT FOOT AND ALL TOES ON RIGHT FOOT. SMALL ULCER ON RIGHT FOOT THAT IS SENIOR QA TESTER. SEE SHIFT ASSESSMENT FOR DETAILS.
--- NOTE | 2021-09-02 19:51 | NUR ---
UPDATE: ANXIETY PT ANXIOUS AND TRYING TO TAKE OFF BIPAP MASK. ATIVAN GIVEN 2 HRS AGO SO SPOKE WITH DR. LIRA WHO ORDERED HALDOL 3MG X 1. HE STATES THAT IF THAT RELIEVES THE PATIENT'S ANXIETY THAT IT CAN BE ORDERED Q6HR PRN ANXIETY.
--- NOTE | 2021-09-02 21:00 | NUR ---
UPDATE: CALL FROM CARDIOLOGY DR. BOOTH CALLED FOR UPDATE ON PT. EXPLAINED THAT HE IS VERY ANXIOUS AND TRYING TO REMOVE HIS BIPAP AND REFUSING TO LIE FLAT AND TRYING TO GET OUT OF BED. SHE STATES IT IS OK FOR HIS TO SIT UP AT THIS TIME. HR IS IN THE 140'S, SBP IS >180, RR IN 50'S, AND HE IS VERY DIAPHORETIC AND FLUSHED. SINCE HALDOL DID NOT SEEM TO WORK ON PT, REQUESTED ATIVAN 1MG Q2 PRN SINCE HE SEEMS TO RESPOND BETTER TO THAT. SHE AGREED AND REQUESTED TO REACH OUT TO PULM IN REGARDS TO DESATING ISSUE.
--- NOTE | 2021-09-02 21:36 | NUR ---
CALL TO MD CALL TO DR SIU REGARDING ANXIETY. PT HAS BEEN MED WITH HALDOL AND ATIVAN BUT CONT TO HAVE ANXIETY AND TRYING TO CLIMB OUT OF BED. PT C/O OF ANXIETY. HEART RATE UP 120-130'S, BP ELEVATED AT 186/72, RESP RATE 30-50 ON BIPAP. BIPAP SETTINGS 16/8 FIO2 30%. RT AT BEDSIDE CHANGED BIPAP SETTINGS TO 18/10 AND INCREASED FIO2 TO 60%. WILL RESTART PRECEDEX GTT PER DR SIU
[2021-09-03 04:15] LABS: BASOPHILS ABSOLUTE AUTO 0.01 K/mm3 (0.00-0.23); BASOPHILS PERCENT AUTO 0 % (0-2); EOSINOPHILS PERCENT AUTO 0 % (0-6); Hematocrit 41.1 % (37.0-53.0); IMMATURE GRAN ABSOLUTE AUTO 0.06 K/mm3 (0.00-0.10); IMMATURE GRAN PERCENT AUTO 1 % (0-1); LYMPHOCYTES ABSOLUTE AUTO 0.45 K/mm3 (0.84-5.20); LYMPHOCYTES PERCENT AUTO 4 % (21-46); MONOCYTES ABSOLUTE AUTO 1.35 K/mm3 (0.16-1.47); MONOCYTES PERCENT AUTO 12 % (4-13); Mean Corpuscular HGB 30.6 pg (26.0-34.0); Mean Corpuscular HGB Conc 34.1 g/dL (31.5-36.5); Mean Corpuscular Volume 90 fL (80-100); NEUTROPHILS ABSOLUTE AUTO 9.06 K/mm3 (1.96-9.15); NEUTROPHILS PERCENT AUTO 83 % (41-73); Platelet Count 216 K/mm3 (150-400); RDW Standard Deviation 42.5 fL (35.1-46.3); Red Blood Cell Count 4.58 M/mm3 (4.30-5.90); White Blood Cell Count 10.93 K/mm3 (4.00-11.30)
[2021-09-03 04:35] LABS: Bun/Creatinine Ratio 24.4 (12.0-20.0); Calcium, Blood 9.4 mg/dL (8.5-10.1); Creatinine, Blood 1.6 mg/dL (0.60-1.20); Magnesium, Blood 1.9 mg/dL (1.6-2.4); Potassium, Blood 3.6 mmol/L (3.5-5.5)
--- NOTE | 2021-09-03 06:33 | NUR ---
SHIFT SUMMARY: PT LYING IN BED W/ EYES CLOSED APPEARING TO BE RESTING COMFORTABLY IN SWB RESTRAINTS. HE AROUSES EASILY AND IS ALERT BUT THERE IS STILL A CONCERN OF HIM REMOVING HIS BIPAP MASK AND GETTING OUT OF BED WHEN HE IS WOKEN UP. BIPAP SETTINGS ARE 16/8 AT 45% AND HE IS SATING 99% WITH RR OF 18. CURRENTLY, HIS HR IS 65 AND BP IS 104/56. PRECEDEX IS INFUSING AT 1.0 MCG/KG/HR AND PRN ATIVAN GIVEN SEVERAL TIMES T/O SHIFT. HOOD STILL IN PLACE DRAINING CLEAR YELLOW URINE TO GRAVITY. PT CAN BE TRANSITIONED TO ADA DIET BUT HE HAS REFUSED TO TAKE ORAL MEDS SINCE MIDNIGHT. NO BM THIS SHIFT AND PT HAS REMAINED AFEBRILE. WILL REPORT TO ONCOMING RN WHEN AVAILABLE.
--- NOTE | 2021-09-03 08:11 | NUR ---
0715: SBAR from night RN. Pt sedated on precedex 1.0mcg/kg/hr with RASS -2 on BiPAP 16/8, 45%, VSS. Groin sites w/o induration, dressings CDI. 0745: Decreased precedex to 0.8mg/kg/hr to improve mental status prior to giving any PO medications.
--- NOTE | 2021-09-03 10:01 | NUR ---
0930: Dr. Salas at bedside. Precedex now on standby. Pt awakened and demonstrates AAOx4 with spontaneously eye opening with no focal deficis noted, moves all extrememties equally and follows commands. Pt to nasal cannula 6LPM from BiPAP, Spo2 96% and maintained. Accessory muscle use noted, MD aware. 1000: Pt placed on venturi mask at 55% by RT. Pt attempted to have BM in bedpan, no result. Desaturation to upper 80's while performing ADLS/assisting with bedpan. Complete bedbath performed. VSS 5min s/p interventions.
--- NOTE | 2021-09-03 10:54 | NUR ---
Pt with high amount of accessory muscle use. SpO2 regularly dipping to mid-80's with good pleth. Notified RT/Dr. Salas. Pt placed back on BiPAP at 1050 with good recovery of SpO2 to 97%.
--- NOTE | 2021-09-03 11:53 | NUR ---
Dr. Salas at bedside. Trial of 02/06, 25% FiO2. Pt immediately with SpO2 to 85% and became agitated with increased respiratory effort. MD restored settings of 05/06, 30% FiO2. Pt recovered. BGL 238mg/dL. Pt not eating at this time due to respiratory issues.
--- NOTE | 2021-09-03 11:54 | NUR ---
Family update: Spoke with Rupinder (spouse) to provide update at approximately 1100. No further questions at this time.
--- NOTE | 2021-09-03 15:07 | NUR ---
Pt's spouse within room. Pt less agitated s/p lorazepam adminstration per his request for anxiety.
--- NOTE | 2021-09-03 16:28 | NUR ---
NOTIFIED DR. SIU OF CONCERN FOR IRREGULAR (CYCLIC TACHYPNEA) BREATHING PATTERN, HIGH WORK OF BREATHING, AND INTERMITTENT SELF-LIMITING HYPOXEMIA THAT RESPONDS TO FIO2 INCREASES. DR. SIU AT BEDSIDE TO EVALUATE PT. SEE MAR FOR MORPHINE/FUROSEMIDE MEDICATION CHANGES.
--- NOTE | 2021-09-03 17:01 | NUR ---
NOTIFIED DR. JOHNSON OF HYPERGLYCEMIA AND THAT PT IS NOT EATING DUE TO RESPIRATORY STATUS. SHE STATES SHE WILL CHANGE TO REGULAR INSULIN. DISCUSSED PT RESPIRATORY STATUS WITH DR. Ennis. NOTIFIED HER AND RT THAT PT IS NOW ON 45% FIO2 WITH CYCLIC TACHYPNEA/HYPOXIA. DISCUSSED PLAN PUT FORWARD BY DR. SIU FOR MORPHINE/LASIX/MONITORING.
--- NOTE | 2021-09-03 17:42 | NUR ---
1830: Pt continues with significant abnormal breathing pattern. Notified RT of increased FiO2 requirement. Dr. Salas notified by RT and brought to bedside. Pt diaphoretic, tachycardic, hypertensive, with Spo2 92% on 100% FiO2. 184: EKG performed at bedside, multiple attempts due to significant artifact. EKGs read by Dr. Salas. 1844: Dr. Pineda notified.
--- NOTE | 2021-09-03 18:27 | NUR ---
SHIFT SUMMARY Neuro: High anxiety throughout afternoon. Pt now sedated on 25mg/kg/hr propofol s/p RSI. Resp: Intubated 8.0 ETT 24cm@lip x 1 attempt at 1800. AC/VC 18/480/100%/5 s/p respiratory failure secondary to suspected KS. Cardiac: New KS w/ plan for chemical lab technician on 09/04 in AM. Central line to R IJ placed at [address] Salas. NE IV GTT at 8mcg/min s/p hypotension with MAP down to 45 low. Bedside echo by Dr. Salas w/ suspected decrease in EF. EKG changes per Dr. Salas. Prior to intubation, pt did not endorse CP. GI: NG tube to L nare placed, clamped. : No change. Integ: No change. Psych/Soc: Pt now full care, no CPR per Dr. Salas after discussion with pt's spouse Rupinder.
--- NOTE | 2021-09-03 18:37 | NUR ---
Pt s/p EKG changes, pending respiratory failure w/ irregular respirations and refractory hypoxemia. Dr. Salas brought to bedside and pt prepped for RSI. RSI: Orders by Dr. Salas Monitor set to q3min. Suction and emergency equipment set up at bedside. 1755: 50mcg IV fentanyl. 1758: Propofol 100mg IV. 1759: Rocuronium 80mg IV. 1800: Attempt x [address] Salas. Equal rise/fall of chest, skin color appropriate, pulse oximetry stabilizing, lung sounds auscultated to all harris, positive color change. 8.0 ETT 24cm @ Lip 1812: Phenylephrine 100mcg IV for hypoTN. 1813: Phenylephrine 100mcg IV for hypoTN. 1819: Phenylephrine 100mcg IV for hypoTN. 1821: Phenylephrine 100mcg IV for hypoTN. 1825: Norepinephrine IV gtt started at 8mcg/min. 1830: Central line performed by Dr. Salas, R IJ quad lumen. 1848: XRAY performed. Dr. Salas reviewed and states OK to use central line, ETT in correct location, and NG tube is appropriately placed.
--- NOTE | 2021-09-03 21:53 | NUR ---
ASSUMED CARE @1900 PATIENT IS SEDATED AND INTUBATED, RESPONDS TO TOUCH/PAINFUL STIMULI, OPENS EYES AND MOVES EXTREMETIES. RESTRAINTS IN PLACE TO PROTECT LINES AND TUBES. SEDATED WITH PROPFOL INF 35 MCG/KG/MIN. VENT SETTINGS AC VC 18/480/5/40%. 02 SATS 98%. RR 18. HR [address]PRESSION. LEVOPHED INF 2 MCG/MIN. PULSES STRING IN LUE, FAINT IN RUE, DOPPLER FOR BLE. SOME ABDOMINAL DISTENTION, NG TUBE INTERMITTEN SUCTION, SOME BROWN DRAINAGE. HOOD DRAINING CLEAR YELLOW URINE. IN ROOM AT START OF SHIFT. DR. SIU IN ROOM AT START OF SHIFT, VERBAL ORDERS TO SWITCH MEDS TO PT. CALLED DR. BOOTH, ORDERS TO RESTART HEPARIN gtt. PATIENT BEDDING CHANGED, BED BATH DONE, CATHETER CARE COMPLETED. SEE SHIFT ASSESSMENT FOR MORE DETAIL.
[2021-09-04 03:47] LABS: BASOPHILS ABSOLUTE AUTO 0.01 K/mm3 (0.00-0.23); BASOPHILS PERCENT AUTO 0 % (0-2); EOSINOPHILS PERCENT AUTO 0 % (0-6); Hematocrit 36.6 % (37.0-53.0); Hemoglobin 12.6 g/dL (13.5-17.5); IMMATURE GRAN ABSOLUTE AUTO 0.09 K/mm3 (0.00-0.10); IMMATURE GRAN PERCENT AUTO 1 % (0-1); LYMPHOCYTES ABSOLUTE AUTO 0.83 K/mm3 (0.84-5.20); LYMPHOCYTES PERCENT AUTO 7 % (21-46); MONOCYTES ABSOLUTE AUTO 1.18 K/mm3 (0.16-1.47); MONOCYTES PERCENT AUTO 10 % (4-13); Mean Corpuscular HGB 30.7 pg (26.0-34.0); Mean Corpuscular HGB Conc 34.4 g/dL (31.5-36.5); Mean Corpuscular Volume 89 fL (80-100); Mean Platelet Volume 9.4 fL (9.1-12.4); NEUTROPHILS ABSOLUTE AUTO 9.32 K/mm3 (1.96-9.15); NEUTROPHILS PERCENT AUTO 82 % (41-73); Platelet Count 242 K/mm3 (150-400); RDW Coefficient Variation 13.1 % (11.7-14.2); White Blood Cell Count 11.43 K/mm3 (4.00-11.30)
[2021-09-04 04:04] LABS: Bun/Creatinine Ratio 35.2 (12.0-20.0); Calcium, Blood 8.5 mg/dL (8.5-10.1); Creatinine, Blood 1.76 mg/dL (0.60-1.20); Magnesium, Blood 1.8 mg/dL (1.6-2.4); Potassium, Blood 2.9 mmol/L (3.5-5.5)
--- NOTE | 2021-09-04 06:15 | NUR ---
SHIFT SUMMARY PATIENT REMAINS INTUBATED AND SEDATED. REPSONDS TO TOUCH/PAINFUL STIMULI, WHEN RESTRAINTS OFF PURPOSEFUL MOVEMENT AND REACHES FOR HIS TUBE. 02 SATS 95-100% ON VENT AC VC 18/480/5/35%, SMALL AMOUNT QUEEN-BROWN SECRETIONS SUCTIONED. LUNGS SOUNDS MORE CLEAR THAN START OF SHIFT SOME COARSE SOUNDS NOTED TO DIMINISHED. RR 18. HR 80s, REMAINS IN LEVOPHED 2 MCG/MIN. HEPARIN gtt INF. NG TUBE, SMALL AMOUNT OF BROWN DRAINAGE. ANGIO SITES UNCHANGES. HOOD DRAINING YELLOW URINE. TURNED Q2 HOURS. BLOOD GLUCOSE 405 @0000 CALLED HOSPITALIST, MEDICATED PER EMAR.
--- NOTE | 2021-09-04 10:37 | NUR ---
Echocardiogram completed.
--- NOTE | 2021-09-04 17:46 | NUR ---
Review of samantha status with explaing in simpe terms and great detail code staus needs for intervntional care. supportive visit with to express her fear and stress. She is waiting for daughter to come in from out of town. pt amendable to full code for terament phase and cpr. will reevaluate for dnr after procedure. She epresses appreciation for giving him the greates changce and has hope. She fears great suffering. Advised all stff will help her with sorting out the details. Her history is her daughter ws in a intermediate for a length of time on a ventilator.
--- NOTE | 2021-09-04 18:47 | NUR ---
0800 Pt recieved on bed intubated and lighly sedated; responsive to tactile stimuli. Pt assessment done; pt has Left IJ infusing heparin, Levo and propofol. Pt has chino draining adequate output. [address] weaned off. Dr. Pineda @ bedside discussed procedures with pt family. Consents obtained. seen and assessed pt; orders recieved. Palliative care team also spoke to pt family about Advance directives. Cathlab Procedure postsponed for possible tommorow. Renal and Echo ultrasound done; pt tolarated well. Pt repositioned and family updated on plan of care. Pt afebrile, VSS and in no acute distress. Will continue to monitor pt until remainder of shift.
--- NOTE | 2021-09-04 19:00 | NUR ---
ASSUME CARE: PT INTUBATED AND SEDATED IN SWB RESTRAINTS. VENT SETTINGS ARE ACVC 18/480/5/30%. HE RESPONDS TO PAIN, REPOSITIONING, AND ORAL CARE AND WILL MOVE HIS LOWER EXTREMITIES. VITALS ALL WNL. HEPARIN INFUSING AT 15U/KG/HR, PROPOFOL AT 30MCG/KG/MIN, AND A NS TKO. HOOD IN PLACE DRAINING YELLOW URINE TO GRAVITY. LEFT NGT TO LIS WITH BROWN DRAINAGE. BLE ARE DRY, RED, AND SCALY W/ ALL TOES AMPUTATED ON RIGHT FOOT AND THE GREAT TOE ON LEFT FOOT. THERE IS A SMALL ULCER ON THE RIGHT HEEL KATHY. SEE SHIFT ASSESSMENT FOR DETAILS.
--- NOTE | 2021-09-04 20:57 | NUR ---
MEDICATION CLARIFICATION CALLED PHARMACY TO VERIFY IF BRILENTA IS OK TO GIVE WHILE ON A HEPARIN DRIP. PT HAS PLANS TO RETURN TO FORMING DEPARTMENT END FINDER IN THE MORNING BUT NO INSTRUCTIONS ON STOPPING HEPARIN BEFORE THEN. ARELIS WITH PHARMACY STATES THAT THE 2100 DOSE SHOULD BE OK TO GIVE BUT THAT THE AM DOSE SHOULD BE EVAULATED. ALSO VERIFIED THAT RANEXA CANNOT BE CRUSHED SO WILL HOLD SINCE PT IS INTUBATED W/ NGT.
--- NOTE | 2021-09-04 22:56 | NUR ---
POTASSIUM POTASSIUM REDRAW CAME BACK 2.8. SPOKE WITH DR. NOLAND WHO ORDERED KCL 40MEQ.
[2021-09-05 04:05] LABS: BASOPHILS ABSOLUTE AUTO 0.02 K/mm3 (0.00-0.23); BASOPHILS PERCENT AUTO 0 % (0-2); EOSINOPHILS ABSOLUTE AUTO 0.01 K/mm3 (0.00-0.68); EOSINOPHILS PERCENT AUTO 0 % (0-6); Hematocrit 40.2 % (37.0-53.0); Hemoglobin 13.5 g/dL (13.5-17.5); IMMATURE GRAN ABSOLUTE AUTO 0.12 K/mm3 (0.00-0.10); IMMATURE GRAN PERCENT AUTO 1 % (0-1); LYMPHOCYTES ABSOLUTE AUTO 0.99 K/mm3 (0.84-5.20); LYMPHOCYTES PERCENT AUTO 9 % (21-46); MONOCYTES PERCENT AUTO 10 % (4-13); Mean Corpuscular HGB 30.2 pg (26.0-34.0); Mean Corpuscular HGB Conc 33.6 g/dL (31.5-36.5); Mean Corpuscular Volume 90 fL (80-100); Mean Platelet Volume 9.2 fL (9.1-12.4); NEUTROPHILS ABSOLUTE AUTO 8.88 K/mm3 (1.96-9.15); NEUTROPHILS PERCENT AUTO 80 % (41-73); Platelet Count 231 K/mm3 (150-400); RDW Coefficient Variation 13.2 % (11.7-14.2); RDW Standard Deviation 43.6 fL (35.1-46.3); Red Blood Cell Count 4.47 M/mm3 (4.30-5.90); White Blood Cell Count 11.12 K/mm3 (4.00-11.30)
[2021-09-05 04:25] LABS: Creatinine, Blood 1.37 mg/dL (0.60-1.20); Potassium, Blood 3.1 mmol/L (3.5-5.5)
[2021-09-05 05:12] LABS: PCO2 Arterial 27.3 mmHg (35-45); PO2 Arterial 66.7 mmHg (80-100)
--- NOTE | 2021-09-05 05:32 | NUR ---
pH & POTASSIUM RT REQUESTED I CALL THE HOSPITALIST FOR ORDER TO DECREASE PT'S RR ON VENT FOR pH OF 7.6. SPOKE W/ DR. LIRA WHO SAID THAT WAS FINE. INFORMED RT. ALSO LET DR. LIRA KNOW THAT POTASSIUM ONLY CAME UP TO 3.1. HE ORDERED A 1 TIME 20 MEQ KCL IV.
--- NOTE | 2021-09-05 06:29 | NUR ---
SHIFT SUMMARY: PT REMAINS INTUBATED, SEDATED, AND IN SWB RESTRAINTS. VENT SETTINGS ARE ACVC 14/480/5/30% AND CURRENTLY SATING 99%. HR IS 87 AND BP IS 124/62. HOOD REMAINS IN PLACE DRAINING YELLOW/GREEN URINE TO GRAVITY. LEFT NARE NGT IS TO LIS AND DRAINING BROWN BILE. HE HAD A SMALL BM THIS AM. PROPOFOL INFUSING AT 35MCG/KG/MIN, HEPARIN AT 15U/KG/HR, AND IS PENDING 20 MEQ KCL IV FOR A POTASSIUM OF 3.1. 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 WILL REPORT TO ONCOMING RN WHEN AVAILABLE.
--- NOTE | 2021-09-05 14:12 | NUR ---
0800 Pt recieved on bed intubated and sedated, reactive to tactile stimuli. Pt assessment done; pt has Left IJ infusing Propofol, Heparin and Potassium. Bush present draining adequate output. Pt reposition and oral care given. 0900 Dr. Galan seen and assessed pt; orders recieved. Possible Cathlab procedure today; Family @ bedside for support and consent. 1200 Pericare done and pt repositioned. Pt afebrile, VSS and in no acute distress. Will monitor pt closely.
--- NOTE | 2021-09-05 21:05 | NUR ---
ASSUMPTION OF CARE RECEIVED REPORT AT 191 FROM JORDY GARCIA. ASSUMED CARE OF PATIENT. PATIENT INTUBATED AND SEDATED. VITALS STABLE. TF AT 25ML/HR, RESIDUALS CHECKED AT 1999 WITH 20CC REFED, INCREASED FEED RATE TO 45ML/HR. PROPOFOL AND HEPARIN INFUSING ORDERED. ORDERS REVIEWED. WILL TREAT PRESCRIBED.
[2021-09-06 04:11] LABS: PO2 Arterial 68.6 mmHg (80-100)
[2021-09-06 05:09] LABS: BASOPHILS ABSOLUTE AUTO 0.02 K/mm3 (0.00-0.23); BASOPHILS PERCENT AUTO 0 % (0-2); EOSINOPHILS ABSOLUTE AUTO 0.09 K/mm3 (0.00-0.68); EOSINOPHILS PERCENT AUTO 1 % (0-6); IMMATURE GRAN ABSOLUTE AUTO 0.08 K/mm3 (0.00-0.10); IMMATURE GRAN PERCENT AUTO 1 % (0-1); LYMPHOCYTES ABSOLUTE AUTO 0.87 K/mm3 (0.84-5.20); LYMPHOCYTES PERCENT AUTO 8 % (21-46); MONOCYTES PERCENT AUTO 10 % (4-13); Mean Corpuscular HGB 30.2 pg (26.0-34.0); Mean Corpuscular HGB Conc 32.5 g/dL (31.5-36.5); Mean Corpuscular Volume 93 fL (80-100); Mean Platelet Volume 9.6 fL (9.1-12.4); NEUTROPHILS ABSOLUTE AUTO 8.65 K/mm3 (1.96-9.15); NEUTROPHILS PERCENT AUTO 80 % (41-73); Platelet Count 246 K/mm3 (150-400); RDW Coefficient Variation 13.3 % (11.7-14.2); RDW Standard Deviation 45.4 fL (35.1-46.3); White Blood Cell Count 10.81 K/mm3 (4.00-11.30)
[2021-09-06 05:39] LABS: Bun/Creatinine Ratio 40.9 (12.0-20.0); Calcium, Blood 8.5 mg/dL (8.5-10.1); Creatinine, Blood 1.37 mg/dL (0.60-1.20); Phosphorus, Blood 4.4 mg/dL (2.5-4.9); Potassium, Blood 3.2 mmol/L (3.5-5.5)
--- NOTE | 2021-09-06 06:14 | NUR ---
SHIFT SUMMARY PATIENT INTUBATED AND SEDATED THROUGH SHIFT. NO ADJUSTMENTS MADE TO IV INFUSIONS OR VENTILATOR. O2 SATS ABOVE 95% ON 30% FIO2, SUCTIONED DARK, GREEN MUCOUS PLUGS FROM PATIENT'S ETT. PROPOFOL CONTINUES AT 35MCG/KG FOR SEDATION. TF AT GOAL OF 60ML/HR WITH LOW RESIDUALS. LABS REVIEWED THIS MORNING, POTASSIUM 3.2, POTASSIUM REPLACEMENT ORDERED PER ELECTROLYTE PROTOCOL, FIRST DOSE INFUSING. NO ACUTE CHANGES TO ASSESSMENT OVER NIGHT. WILL CONTINUE TO MONITOR AND AWAIT DAY SHIFT RN.
--- NOTE | 2021-09-06 07:15 | NUR ---
ASSUMPTION OF CARE PT REMAINS INTUBATED AT THIS TIME WITH VENT SETTINGS AC/VC 12/480/5/30%. PT RECEIVING PROPOFOL 35MCG/KG/MIN AND HEPARIN 15UNITS/HR. TUBE FEEDING CONTINUES TO INFUSE VIA NGT AT GOAL RATE, RESIDUAL 20ML THIS AM. HOOD REMAINS IN PLACE DRAINING YELLOW/CLEAR URINE. TEMPORAL TEMP 100.1. PT WARM TO TOUCH, SKIN IS DRY. SEE SHIFT ASSESSMENT.
--- NOTE | 2021-09-06 09:41 | NUR ---
PLAN OF CARE DISCUSSED PT'S CONDITION WITH DR THEODORE, PLAN TO KEEP PT INTUBATED UNTIL POST-DIRECTOR DIETETICS DEPARTMENT PROCEDURE. DR. MCNAIR PLANS TO POSSIBLY TAKE PT TO DIRECTOR DIETETICS DEPARTMENT TODAY. HOSPITALIST NOTIFIED AND UPDATED. PT'S AT BEDSIDE, UPDATED AND AGREES WITH PLAN. NO ADDITIONAL ORDERS AT THIS TIME.
--- NOTE | 2021-09-06 13:50 | NUR ---
PT TO STORE SPECIALIST STORE SPECIALIST STAFF HERE TO TAKE PT. PT RECEIVING HEPARIN 15UNITS/HR AND PROPOFOL 30MCG/KG/MIN. PT REMAINS INTUBATED WITH VENT SETTINGS AC/VC 12/480/5/30% WITH SPO2 >97%.
--- NOTE | 2021-09-06 15:22 | NUR ---
PT BACK TO ROOM PT BACK TO ICU AT THIS TIME. VENT SETTINGS 12/400/5/30%. PT CONTINUES TO RECEIVE PROPOFOL 30MCG/KG/MIN. HEPARIN STOPPED AT 1354. WELLNESS GUIDE PROCEDURE COMPLETED WITHOUT COMPLICATIONS. REPORTED MANUAL PRESSURE HELD FOR 15MIN. ACCESS VIA R GROIN. SITE HAS GRETCHEN AND TRANSPARENT DRESSING. SITE VISUALIZED WITH WELLNESS GUIDE STAFF, AREA SOFT TO PALPATION.
--- NOTE | 2021-09-06 17:48 | NUR ---
SHIFT SUMMARY PT REMAINS INTUBATED WITH VENT SETTINGS AC/VC 12/400/5/30%. PT RECEIVING PROPOFOL 30MCG/KG/MIN AND NS TKO. NEURO: PT SEDATED WITH PROPOFOL. OCCASIONALLY GRIMACES DURING ORAL CARE. DURING SEDATION VACATION, PT WOKE, MADE EYE CONTACT AND FOLLOWED COMMANDS. RESP: LUNG SOUNDS ARE COARSE AND DIMINISHED. MODERATE AMOUNT OF QUEEN SECRETIONS FROM ETT. TIDAL VOLUME DECREASED FROM 480 TO 400 THIS SHIFT. CARDIAC: PT WENT TO INTEGRATION PROJECT MANAGER TODAY FOR DIAGNOSTIC PROCEDURE. R GROIN SITE ACCESS. TRANSPARENT DRESSING REMAINS IN PLACE. AREA IS SOFT, NO SIGNS OF BLEEDING OR HEMATOMA. PT IN SINUS RHYTHM ON MONITOR WITH HR 80S-90S. SBP HAS BEEN 110S-150S. FAINT RADIAL PULSES, DOPPLER PEDAL PULSES. GI: TUBE FEEDING CONTINUES TO INFUSE AT GOAL RATE. FEEDING WAS OFF FOR APPROX 2 HOURS FOR PROCEDURE THEN RESTARTED. MINIMAL RESIDUALS THROUGHOUT SHIFT. 2 SOFT BMS THIS SHIFT. : HOOD REMAINS IN PLACE DRAINING TEA/YELLOW URINE. ADEQUATE OUTPUT THIS SHIFT. LASIX DISCONTINUED. SKIN: WARM AND DRY. BLE REMAIN DRY AND PEELING. LOTION APPLIED EARLIER. TMAX 100.1, NOW TEMP IS 99.5. PLAN TO WEAN AND POSSIBLY EXTUBATE TOMORROW AM. CBGS REMAIN HIGH THROUGHOUT SHIFT. DECK OFFICER AWARE AND ORDER RECEIVED TO INCREASE TO HIGH SLIDING SCALE AND Q4 CHECKS.
[2021-09-07 04:29] LABS: BASOPHILS ABSOLUTE AUTO 0.02 K/mm3 (0.00-0.23); BASOPHILS PERCENT AUTO 0 % (0-2); EOSINOPHILS ABSOLUTE AUTO 0.01 K/mm3 (0.00-0.68); EOSINOPHILS PERCENT AUTO 0 % (0-6); Hematocrit 40.9 % (37.0-53.0); Hemoglobin 13.5 g/dL (13.5-17.5); IMMATURE GRAN ABSOLUTE AUTO 0.12 K/mm3 (0.00-0.10); IMMATURE GRAN PERCENT AUTO 1 % (0-1); LYMPHOCYTES ABSOLUTE AUTO 1.01 K/mm3 (0.84-5.20); LYMPHOCYTES PERCENT AUTO 9 % (21-46); MONOCYTES PERCENT AUTO 12 % (4-13); Mean Corpuscular Volume 94 fL (80-100); Mean Platelet Volume 9.9 fL (9.1-12.4); NEUTROPHILS ABSOLUTE AUTO 8.35 K/mm3 (1.96-9.15); NEUTROPHILS PERCENT AUTO 77 % (41-73); Platelet Count 248 K/mm3 (150-400); RDW Coefficient Variation 13.1 % (11.7-14.2); RDW Standard Deviation 45.3 fL (35.1-46.3); Red Blood Cell Count 4.35 M/mm3 (4.30-5.90); White Blood Cell Count 10.81 K/mm3 (4.00-11.30)
[2021-09-07 05:10] LABS: Calcium, Blood 8.8 mg/dL (8.5-10.1); Creatinine, Blood 1.49 mg/dL (0.60-1.20); Magnesium, Blood 2.3 mg/dL (1.6-2.4); Phosphorus, Blood 3.7 mg/dL (2.5-4.9); Potassium, Blood 3.1 mmol/L (3.5-5.5)
--- NOTE | 2021-09-07 06:08 | NUR ---
END OF SHIFT SUMMARY: Neuro - pt moves extremities to pain, unable to follow commands, remains sedated with propofol. Will do a sedation vacation this morning per day shift RN. Propofol down to 15 mcg/min/kg. Resp: Remains intubated with no changes on ventilator settings at 12/400/5/30%. Lung sounds are clear with no secretions. Will do a spontaneous breathing trial this AM. Cardiac: HR remained in the 90's - low 100's. Febrile at 100.2, gave acetaminophen, pt temperature WNL after a couple hours. Bilateral groin sites remain clean, dry and intact with no signs of bleeding/hematomas. Pedal pulses are weak requiring doppler. GI/: Bush remains in place and pt had adequate UO. 1x BM. Tolerating TF with goal rate of 60 mL/hr. Skin: Q2 turn, coccyx intact, BLE are mottled and dusky.
--- NOTE | 2021-09-07 07:15 | NUR ---
ASSUMPTION OF CARE PT REMAINS INTUBATED AT THIS TIME, VENT SETTINGS AC/VC 12/400/5/30%. PT RECEIVING PROPOFOL 10MCG/KG/MIN AND SUPPLEMENTAL KCL. WITH SEDATION OFF, PT BEGINS TO WAKE UP. OPENS EYES SPONTANEOUSLY BUT MAINLY TO VERBAL STIMULI AND DURING CARE. PT FOLLOWS COMMANDS SUCH SQUEEZING HANDS AND NODDING/SHAKING HEAD TO ANSWER QUESTIONS. TUBE FEEDING CONTIUES TO INFUSE VIA OGT AT GOAL RATE. HOOD DRAINING TEA COLORED URINE. SEE SHIFT ASSESSMENT.
--- NOTE | 2021-09-07 09:10 | NUR ---
WEANING SEDATION OFF AT 0850. RT IN ROOM NOW. PT NODS HEAD WHEN RT IS EXPLAINING PLAN TO SWITCH TO SPONTANEOUS ON VENTILATOR. PT FOLLOWS COMMANDS INCLUDING SQUEEZING HANDS. PT ON SPONTANEOUS WITH PS 15, PEEP 5, AND FIO2 30%. DR THEODORE AWARE AND AT BEDSIDE FOR EVAL.
--- NOTE | 2021-09-07 11:15 | NUR ---
Pt hypertensive. No resolution noted with AM metoprolol or pain management. Plan to give labetalol.
--- NOTE | 2021-09-07 13:30 | NUR ---
Pt's has had decreased neuro status. Fentanyl given earlier in shift due to grimaces and high RR, in addition to elevated BP. Grimaces improved. Ativan given due to pt restless. Rhythmic movement to arms, internal rotation, happens spontaneously. Pupils pinpoint. Notified Dr Galan. Plan to switch pt back to AC mode on ventilator. Plan to hold ativan and fentanyl for now. Will hold sedation until pt becomes more awake.
--- NOTE | 2021-09-07 17:00 | NUR ---
No improvements noted in neuro assessment. Dr Galan notified. Plan to continue to reassess closely.
--- NOTE | 2021-09-07 18:07 | NUR ---
SHIFT SUMMARY PT REMAINS INTUBATED WITH VENT SETTINGS AC/VC 12/400/5/30%. NEURO: SEDATION OFF SINCE AM. PT INCONSISTENTLY OPENS EYES TO PAINFUL STIMULI, GRIMACES WITH STERNAL RUB. PUPILS REMAIN 1MM EQUAL, SLUGGISH TO RESPOND. L PUPIL REMAINS ELLIPTICAL IN SHAPE. RESP: PT WAS ON SPONTANEOUS THROUGH MOST OF THE DAY. SWITCHED BACK TO AC/VC BY DR THEODORE. LUNGS ARE COARSE AND DIMINISHED. SMALL TO MODERATE AMOUNTS OF THICK/QUEEN ETT SECRETIONS. CARDIAC: SINUS TACH ON MONITOR WITH RATE BETWEEN 100S-110S. SBP BETWEEN 110S-160S. FAINT RADIAL PULSES, DOPPLER PEDAL PULSES. GI: BOWEL TONES ARE ACTIVE. ABDOMEN MILDLY DISTENDED, REMAINS SOFT TO PALPATION. OCCASIONALLY FACIAL GRIMACING WITH PALPATION. PT HAD 2 LARGE SOFT BMS THIS SHIFT. TUBE FEEDING CONTINUES TO INFUSE VIA NG. RESIDUALS THIS SHIFT 100, 40, 60. : HOOD REMAINS IN PLACE DRAINING MODERATE AMOUNT OF TEA/YELLOW COLORED URINE. WHITE/GREEN PURULENT DISCHARGE AROUND URETHRA. CULTURE COLLECTED AND SENT TO LAB. SKIN: PT OCCASIONALLY CLAMMY/DIAPHORETIC. BLE REMAINS UNCHANGED. CBGS REMAIN IN 200S-300S. CONTINUE Q4 CHECKS. DR THEODORE UPDATED ON PT'S CONDITION AND NEURO STATUS.
--- NOTE | 2021-09-07 18:57 | NUR ---
SHIFT SUMMARY PT REMAINS INTUBATED WITH VENT SETTINGS AC/VC 12/400/5/30%. NEURO: SEDATION OFF SINCE AM. PT INCONSISTENTLY OPENS EYES TO PAINFUL STIMULI GRIMACES WITH STERNAL RUB. PUPILS REMAIN 1MM EQUAL, SLUGGISH TO RESPOND. RESP: PT WAS ON SPONTANEOUS THROUGH MOST OF THE DAY. SWITCHED BACK TO AC/VC B DR THEODORE. LUNGS ARE COARSE AND DIMINISHED. SMALL TO MODERATE AMOUNTS OF THICK/QUEEN ETT SECRETIONS. CARDIAC: SINUS TACH ON MONITOR WITH RATE BETWEEN 100S-110S. SBP BETWEEN 110S-160S. FAINT RADIAL PULSES, DOPPLER PEDAL PULSES. GI: BOWEL TONES ARE ACTIVE. ABDOMEN MILDLY DISTENDED, REMAINS SOFT TO PALPATION. OCCASIONALLY FACIAL GRIMACING WITH PALPATION. PT HAD 2 LARGE SOFT BMS THIS SHIFT. TUBE FEEDING CONTINUES TO INFUSE VIA NG. RESIDUALS THIS SHIFT 100, 40, 60. : HOOD REMAINS IN PLACE DRAINING MODERATE AMOUNT OF TEA/YELLOW COLORED URINE. WHITE/GREEN PURULENT DISCHARGE AROUND URETHRA. CULTURE COLLECTED AND SENT TO LAB. SKIN: PT OCCASIONALLY CLAMMY/DIAPHORETIC. BLE REMAINS UNCHANGED. CBGS REMAIN IN 200S-300S. CONTINUE Q4 CHECKS. [address] THEODORE UPDATED ON PT'S CONDITION AND NEURO STATUS.
--- NOTE | 2021-09-07 20:07 | NUR ---
ASSUME CARE Pt has had sedation off most of day shift. Resting comfortably. Remains intubated on VC/AC FiO2 30% PEEP 5. Unable to follow commands, upper extremities flicker to pain, lower extremities have no movement to painful stimuli. Unable to open eyes despite sternal rub. Minimal response during oral care and repositioning. Cathter care performed at the beginning of shift, still has moderate amount of green/white discharge.
--- NOTE | 2021-09-08 06:53 | NUR ---
SHIFT SUMMARY Pt remains intubated with 30% FiO2 PEEP 5, no secretions, lung sounds clear. Pt still unable to follow commands with minimal to no movement to painful stimuli. Coccyx starting to form an abrasion/skin tear, Q2 turns. Bush remains in place, still has moderate amount of yellow/green discharge, UO tea colored but adequate. TF continues to run at goal, 60 mL/hr. 1x BM last night. Recommendation: no labs were drawn this AM, consider taking BMP and CBC, sedation has been off since the morning of 09/07 maybe trial another SBT.
--- NOTE | 2021-09-08 07:15 | NUR ---
ASSUMPTION OF CARE PT REMAINS INTUBATED WITH VENT SETTINGS AC/VC 12/400/5/30%. TUBE FEEDING CONTINUES TO INFUSE VIA NG AT GOAL RATE. HOOD REMAINS DRAINING TEA/YELLOW URINE. CONTINUE Q4 CBG CHECKS. SEE SHIFT ASSESSMENT.
[2021-09-08 09:37] LABS: BASOPHILS ABSOLUTE AUTO 0.04 K/mm3 (0.00-0.23); BASOPHILS PERCENT AUTO 0 % (0-2); EOSINOPHILS ABSOLUTE AUTO 0.01 K/mm3 (0.00-0.68); EOSINOPHILS PERCENT AUTO 0 % (0-6); Hematocrit 47.1 % (37.0-53.0); Hemoglobin 14.6 g/dL (13.5-17.5); IMMATURE GRAN ABSOLUTE AUTO 0.32 K/mm3 (0.00-0.10); IMMATURE GRAN PERCENT AUTO 2 % (0-1); LYMPHOCYTES ABSOLUTE AUTO 1.36 K/mm3 (0.84-5.20); LYMPHOCYTES PERCENT AUTO 9 % (21-46); MONOCYTES ABSOLUTE AUTO 1.86 K/mm3 (0.16-1.47); MONOCYTES PERCENT AUTO 12 % (4-13); Mean Corpuscular Volume 97 fL (80-100); Mean Platelet Volume 10.5 fL (9.1-12.4); NEUTROPHILS ABSOLUTE AUTO 11.69 K/mm3 (1.96-9.15); NEUTROPHILS PERCENT AUTO 76 % (41-73); Platelet Count 236 K/mm3 (150-400); RDW Coefficient Variation 13.2 % (11.7-14.2); RDW Standard Deviation 47.1 fL (35.1-46.3); Red Blood Cell Count 4.86 M/mm3 (4.30-5.90); White Blood Cell Count 15.28 K/mm3 (4.00-11.30)
[2021-09-08 10:03] LABS: Albumin, Blood 1.9 g/dL (3.4-5.0); Anion Gap 6 mmol/L (6-16); Blood Urea Nitrogen 87 mg/dL (8-24); Bun/Creatinine Ratio 51.2 (12.0-20.0); CO2, Blood 31 mmol/L (21-32); Calcium, Blood 9.1 mg/dL (8.5-10.1); Chloride, Blood 121 mmol/L (98-108); Glomerular Filtration Rate 40 (60-); Glucose, Blood 428 mg/dL (70-99); Magnesium, Blood 2.5 mg/dL (1.6-2.4); Potassium, Blood 3.7 mmol/L (3.5-5.5); Sodium, Blood 158 mmol/L (136-145)
--- NOTE | 2021-09-08 14:00 | NUR ---
GROIN SITE EARILER IN SHIFT, R GROIN SITE HAD WHITE EDGES. AREA CLEANED. DR CHANEY AT BEDSIDE FOR EVAL. SITE APPEARS DRY, NO SIGNS OF DISCHARGE. PLAN TO DRAW BLOOD CULTURES.
--- NOTE | 2021-09-08 17:00 | NUR ---
HYPOTENSION PT BECOMING HYPOTENSIVE WITH SBP IN 70S. LEVOPHED STARTED AT 5MCG/MIN TO MAINTAIN MAP >65.
--- NOTE | 2021-09-08 19:34 | NUR ---
SHIFT SUMMARY PT REMAINS INTUBATED WITH VENT SETTINGS AC/VC 12/400/5/30%. PT RECEIVING LEVOPHED 5MCG/MIN, INSULIN 7UNITS/HR, AND D5 AT 75ML/HR. NEURO: PT REMAINS RESPONSIVE TO PAINFUL STIMULI. AFTER TRIP TO CT, PT SOMEWHAT OPENED EYES. IT APPEARED HE WAS TRYING TO OPEN WITH VERBAL STIMULI BUT WAS UNABLE AND DID NOT FOLLOW ANY VERBAL COMMANDS. PT OCCASIONALLY MOVES HEAD AND MAKES SMALL PURPOSEFUL MOVEMENTS DURING CARE BUT IS INCONSISTENT. RESP: VENT SETTINGS LISTED ABOVE. LUNGS ARE COARSE THROUGHOUT. MODERATE AMOUNT OF THICK ETT SECRETIONS. SPUTUM CULTURE SENT TO LAB. CARDIAC: HR REMAINS 100S-120S. LEVOPHED STARTED THIS EVENING TO MAINTAIN MAP >65. FAINT RADIAL PULSES, DOPPLER PEDAL PULSES. GI: ABODMEN MILDLY DISTENDED, SOFT TO PALPATION. OCCASIONALLY FACIAL GRIMACING WITH PALPATION. TUBE FEEDING CHANGED THIS SHIFT. HIGH RESIDUALS 180,190,240. 2 SOFT BMS THIS SHIFT. : HOOD REMAINS IN PLACE DRAINING TEA/YELLOW URINE. SHIFT OUTPUT OF 550. PT CONTINUES TO HAVE WHITE/GREEN PURULENT DRAINAGE FROM URETHRA. SKIN: PT CLAMMY/DIAPHORETIC THROUGHOUT LAST HALF OF SHIFT. TMAX 103.1, ADMINISTERED MEDICATION PER EMAR, ICE PACKS APPLIED AND FAN. DR CHANEY UPDATED SEVERAL TIMES ON PT'S CONDITION AND ORDERS RECEIVED. CONTINUE CBG CHECKS Q1. WILL REPORT TO ONCOMING RN.
--- NOTE | 2021-09-08 19:56 | NUR ---
ASSUMED CARE: Pt resting comfortably, remains intubated on the same settings (AV/VC FiO2 30% PEEP 5).
[2021-09-08 22:19] LABS: Influenza A, PCR NEGATIVE (NEGATIVE); Influenza B, PCR NEGATIVE (NEGATIVE); Resp Syncytial Virus, PCR NEGATIVE (NEGATIVE); SARS-Cov-2 (COVID-19) PCR, MMC NEGATIVE (NEGATIVE)
[2021-09-09 01:15] LABS: Source, Urine Catheter
[2021-09-09 01:20] LABS: Appearance, Urine Clear (Clear); Bilirubin, Urine 1+ (Neg); Blood, Urine 2+ (Neg); Color, Urine Amber (P-Yellow); Glucose Qualitative, Urine Neg (Neg); Ketones, Urine 1+ (Neg); Leukocyte Esterase, Urine 3+ (Neg); Nitrite, Urine Neg (Neg); Protein, Urine 2+ (Neg); Specific Gravity, Urine 1.015 (1.003-1.022); Urobilinogen, Urine 1+ (Normal)
[2021-09-09 01:26] LABS: Amorphous Light (0-Heavy); Bacteria Mod /hpf; Red Blood Cells, Urine 0-2 /hpf (0-2); Squamous Epithelial Cells Few /hpf (Few)
[2021-09-09 03:47] LABS: BASOPHILS ABSOLUTE AUTO 0.09 K/mm3 (0.00-0.23); BASOPHILS PERCENT AUTO 0 % (0-2); EOSINOPHILS ABSOLUTE AUTO 0.01 K/mm3 (0.00-0.68); EOSINOPHILS PERCENT AUTO 0 % (0-6); Hematocrit 45.2 % (37.0-53.0); Hemoglobin 14.1 g/dL (13.5-17.5); IMMATURE GRAN ABSOLUTE AUTO 0.48 K/mm3 (0.00-0.10); IMMATURE GRAN PERCENT AUTO 2 % (0-1); LYMPHOCYTES ABSOLUTE AUTO 2.37 K/mm3 (0.84-5.20); LYMPHOCYTES PERCENT AUTO 11 % (21-46); MONOCYTES ABSOLUTE AUTO 2.09 K/mm3 (0.16-1.47); MONOCYTES PERCENT AUTO 9 % (4-13); Mean Corpuscular HGB 30.4 pg (26.0-34.0); Mean Corpuscular HGB Conc 31.2 g/dL (31.5-36.5); Mean Corpuscular Volume 97 fL (80-100); NEUTROPHILS PERCENT AUTO 77 % (41-73); NRBC ABSOLUTE 0.08 K/mm3 (0.00-0.02); NRBC Auto 0.4 /100 WBC (0.0-0.2); Platelet Count 232 K/mm3 (150-400); RDW Coefficient Variation 13.2 % (11.7-14.2); RDW Standard Deviation 47.6 fL (35.1-46.3); Red Blood Cell Count 4.64 M/mm3 (4.30-5.90); White Blood Cell Count 22.24 K/mm3 (4.00-11.30)
[2021-09-09 04:07] LABS: Albumin, Blood 1.7 g/dL (3.4-5.0); Anion Gap 8 mmol/L (6-16); Blood Urea Nitrogen 124 mg/dL (8-24); Bun/Creatinine Ratio 43.7 (12.0-20.0); CO2, Blood 28 mmol/L (21-32); Calcium, Blood 8.7 mg/dL (8.5-10.1); Chloride, Blood 120 mmol/L (98-108); Creatinine, Blood 2.84 mg/dL (0.60-1.20); Glomerular Filtration Rate 22 (60-); Glucose, Blood 254 mg/dL (70-99); Sodium, Blood 156 mmol/L (136-145)
--- NOTE | 2021-09-09 05:25 | NUR ---
END OF SHIFT SUMMARY Neuro: pt starting to wake more, at the end of bio medical technician pt able nod yes and shake head for no, was able to point on the right hand, also tried to move lower extremities on command. Remained calm and no signs of agitation or pain. Cardiac: BP remains low throughout shift, levophed now titrated up to 14mcg/min for MAP goal of >65. Fingers starting to become mottled and dusky. No edema. Febrile at tmax of 103.6, patient now on active cooling therapy with [employer] Term 3 machine after interventions such as tylenol and multiple ice packs. Resp: Remains intubated, on AC/VC setting at 30% FiO2 and 5 PEEP. Moderate yellow/white thick secretions overnight. Lung sounds are clear to coarse. GI/: Pt had 3x large loose BM, placed rectal tube to maintan skin integrity. Replaced chino to a temperature sensing one for accurate represation of acutal temp. Old chino had moderate amount of yellow/white purulent discharge. UA sent and resulted. TF residuals were at 100 - 150's, TF remains at 45mL/hour Skin: possibly need a wound care consult for coccyx skin tear. Q2 hour turns with limbs elevated.
--- NOTE | 2021-09-09 10:34 | NUR ---
UPDATED , DR CHANEY ORDERED A NS BOLUS, ALBUMIN, AND ZYVOX TO BE GIVEN
--- NOTE | 2021-09-09 17:46 | NUR ---
MORE ALERT AND ORIENTED TODAY, FAILED BREATHING TRIAL, RESPONDED APPRPPRIATELY TO DIRECTIONS, ANSWERED YES/NO TO QUESTIONS WITH HIS HEAD, TRACKED STAFF IN THE ROOM, BACK ON ACVC 30%FIO2, 5 PEEP, 09/04, NPO, INTUBATED, TF AT GOAL, BS 100-180, D5@75 ML/HR, SANA, IJ, FAMILY VISITED [facility] THIS AFTERNOON, COOPERATIVE TO CARE PLAN, WILL RELAY TO PM RN
[2021-09-09 20:19] LABS: Bun/Creatinine Ratio 45.5 (12.0-20.0); Calcium, Blood 8.4 mg/dL (8.5-10.1); Creatinine, Blood 2.31 mg/dL (0.60-1.20); Potassium, Blood 3.1 mmol/L (3.5-5.5)
--- NOTE | 2021-09-09 21:55 | NUR ---
ASSUMED CARE @1900 PATIENT SEDATED AND INTUBATED, OPENS EYES SPONTANEOUSLY, NODS YES/NO. SUPERINTENDENT PIPELINES EQUAL BUT WEAK. PROPOFOL INF 10 MCG/KG/MIN. O2 SATS 96-100% ON VENT AC/VC 12/400/5/30%. SMALL AMOUNT QUEEN SPUTUM SUCTIONED. COUGH AND GAG PRESENT. SR 80s-90s. LEVO INF 6 MCG/MIN. DOPPLER PULSES IN BLE, LLE PULSE STRONGER THAN RLE. NG TUBE INF PIVOT @45 MLS/HR. [address] Q[address] CHANEY, D5W AND INSULIN gtt DC'd. Q6 CBG AND SLIDING SCALE ORDERED, SEE EMAR. RISIDUALS OF 10 FROM NG TUBE. BOWEL TONES HYPOACTIVE, RECTAL TUBE DRAINING, LEAKING AROUND EDGES. BED LINEN CHANGED AND PATIENT CLEANED UP. HOOD DRAINING HANS URINE. PATIENT NODS NO TO PAIN. BILATERAL WRIST RESTRAINTS IN PLACE TO PROTECT LINES AND TUBES. SEE SHIFT ASSESSMENT FOR MORE INFORMATION.
[2021-09-10 05:18] LABS: BASOPHILS ABSOLUTE AUTO 0.03 K/mm3 (0.00-0.23); BASOPHILS PERCENT AUTO 0 % (0-2); EOSINOPHILS ABSOLUTE AUTO 0.24 K/mm3 (0.00-0.68); EOSINOPHILS PERCENT AUTO 2 % (0-6); Hematocrit 34.2 % (37.0-53.0); Hemoglobin 10.9 g/dL (13.5-17.5); IMMATURE GRAN ABSOLUTE AUTO 0.16 K/mm3 (0.00-0.10); IMMATURE GRAN PERCENT AUTO 1 % (0-1); LYMPHOCYTES ABSOLUTE AUTO 1.19 K/mm3 (0.84-5.20); LYMPHOCYTES PERCENT AUTO 9 % (21-46); MONOCYTES ABSOLUTE AUTO 0.87 K/mm3 (0.16-1.47); MONOCYTES PERCENT AUTO 7 % (4-13); Mean Corpuscular HGB 30.9 pg (26.0-34.0); Mean Corpuscular HGB Conc 31.9 g/dL (31.5-36.5); Mean Corpuscular Volume 97 fL (80-100); Mean Platelet Volume 11.6 fL (9.1-12.4); NEUTROPHILS ABSOLUTE AUTO 10.79 K/mm3 (1.96-9.15); NEUTROPHILS PERCENT AUTO 81 % (41-73); NRBC ABSOLUTE 0.04 K/mm3 (0.00-0.02); NRBC Auto 0.3 /100 WBC (0.0-0.2); Platelet Count 121 K/mm3 (150-400); RDW Standard Deviation 46.3 fL (35.1-46.3); Red Blood Cell Count 3.53 M/mm3 (4.30-5.90); White Blood Cell Count 13.28 K/mm3 (4.00-11.30)
[2021-09-10 05:36] LABS: Albumin, Blood 2.3 g/dL (3.4-5.0); Anion Gap 9 mmol/L (6-16); Blood Urea Nitrogen 112 mg/dL (8-24); Bun/Creatinine Ratio 50.5 (12.0-20.0); CO2, Blood 28 mmol/L (21-32); Calcium, Blood 8.5 mg/dL (8.5-10.1); Chloride, Blood 112 mmol/L (98-108); Creatinine, Blood 2.22 mg/dL (0.60-1.20); Glomerular Filtration Rate 29 (60-); Glucose, Blood 417 mg/dL (70-99); Phosphorus, Blood 3.3 mg/dL (2.5-4.9); Potassium, Blood 3.2 mmol/L (3.5-5.5); Sodium, Blood 149 mmol/L (136-145)
--- NOTE | 2021-09-10 06:03 | NUR ---
SHIFT SUMMARY PATIENT REMAINS SEDATED AND INTUBATED. OPENS EYES SPONTANEOUSLY. NODS/YES NO. PROPOFOL INF 10 MCG/KG/MIN. 02 SATS 99% ON VENT AC VC 12/400/5/30%. RR 17-24. LUNGS SOUND COARSE T/O. HR 70s-80s. LEVOPHED 2 MCG/MIN. HOOD DRAINING HANS URINE. RECTAL TUBE DRAINING BROWN LIQUID STOOLS. PATIENT NODS HEAD NO AND DENIES PAIN. TEMP 99.3. REPOSITIONED Q2 HOURS. BILATERAL SOFT WRIST RESTRAINTS REMAIN IN PLACE.
--- NOTE | 2021-09-10 12:12 | NUR ---
DR. CHANEY UPDATED DR. CHANEY UPDATED ON PATIENT STATUS. INFORMED THAT PATIENT ON 2 MCG/ MINUTE OF LEVOPHED THIS AM. INFORMED THAT KIDNEY LABS INCREASED AND GFR AT 29. INFORMED THAT SODIUM 149 BUT IMPROVED AFTER FREE WATER FLUSHES THROUGH NG INCREASED ON PREVIOUS SHIFT. INFORMED THAT POTASSIUM 3.2 BUT POTASSIUM REPLACEMENT ALREADY ORDERED. INFORMED THAT PATIENT HAD TMAX OF 100.0 DEGREES FAHRENHEIT ON ASSOCIATE CHEMIST. INFORMED THAT PATIENT CONTINUES TO HAVE MUCH LIQUID, BROWN STOOL OUT. INFORMED THAT RECTAL TUBE IN PLACE BUT CONTINUES TO LEAK; INFORMED ADDITIONAL FLUID ADDED TO BALLOON. INFORMED THAT SCHEDULED BOWEL CARE HAS CONTINUED TO BE GIVEN DESPITE FACT THAT PATIENT HAVING DIARRHEA. INFORMED THAT BLOOD SUGARS HAVE BEEN ELEVATED IN 300S AND 400S DESPITE LONG ACTING INSULIN AND Q6H HIGH SLIDING SCALE INSULIN BEING GIVEN. 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 INFORMED THAT PATIENT ON ZYVOX AND ZOSYN AND THAT HE IS ALLERGIC TO VANCOMYCIN. INFORMED THAT PATIENT NODDING "YES" WHEN ASKED IN PAIN. PAIN MED ON HOME MED REC VERIFIED WITH PATIENT'S . DR. CHANEY INFORMED THAT PATIENT TAKES MS CONTIN [address] CHANEY STATES HE WILL PUT ORDERS IN NOW.
--- NOTE | 2021-09-10 15:32 | NUR ---
AT BEDSIDE, PATEINT ANSWERED NO WITH HEAD MOVEMENT IF HE WAS IN PAIN
--- NOTE | 2021-09-10 17:58 | NUR ---
FOLLOWS DIRECTIONS, ANSWERS YES/NO WITH HIS HEAD, GRIMACES WHEN IN PAIN, RESTRAINTS ON, STARTED HOME PAIN MEDICATIONS, PATIENT ANSWERING NO WHEN ASKED IN PAIN, TEMP 97-98, EXTREMITIES WARM TO TOUCH, ALL PULSES IMPROVED, SBP 90-120S, LEVOPHED OFF, HEART RATE 70-90, ACVC 12/400/5/30%, OCCASIONAL COUGH, MINIMAL SECRETIONS, SBT THROUGH THE DAY, RETURNED BACK TO [facility] TO REDUCE EXHAUSTION OF THE PATIENT, LAST BS 109, WATERY LEAKAGE FROM RECTAL TUBE, HELD COLACE, LEAKAGE REDUCED THROUGH THE DAY, WILL RELAY TO PM RN, MELBA
--- NOTE | 2021-09-10 20:35 | NUR ---
ASSUMED CARE @1900 PATIENT ALERT AND OPENS EYES. ABLE TO NOD YES/NO TO QUESTIONS AND FOLLOW SIMPLE COMMANDS. ACCOUNT SERVICES MANAGER EQUAL AND WEAK. PUPILS EQUAL AND REACTIVE. SEDATED WITH PROPOFOL 10 MCG/KG/MIN. 02 SATS 100% ON VENT AC VC 12/400/5/30%. LUNGS SOUND CLEAR IN UPPER LOBES AND COARSE IN MIDDLE TO LOWER. MODERATE AMOUNT OF QUEEN THICK SECRETIONS. RR 15-20s. COUGH AND GAG REFLEX INTACT. HR SR 80s-90s, ST DEPRESSION ON TELE. BP STABLE, LEVOPHED OFF. TUBE FEED PIVOT INF 45 MLS/HR WITH 250 MLS FLUSHES Q4 HOURS, CHANGED TUBING. RISIDUAL CHECKED, 15 MLS, REINSTILLED. RECTAL TUBE DRAINING LIQUID BROWN STOOL, LEAKING AROUND TUBE. HOOD DRANING YELLOW URINE. PARTIAL BED BATH, RECTAL TUBE CARE DONE, CATHETER CARE DONE. REPOSITOINED. SEE SHIFT ASSESSMENT FOR MORE DETAIL.
[2021-09-11 05:24] LABS: BASOPHILS ABSOLUTE AUTO 0.01 K/mm3 (0.00-0.23); BASOPHILS PERCENT AUTO 0 % (0-2); EOSINOPHILS ABSOLUTE AUTO 0.28 K/mm3 (0.00-0.68); EOSINOPHILS PERCENT AUTO 3 % (0-6); Hemoglobin 9.6 g/dL (13.5-17.5); IMMATURE GRAN ABSOLUTE AUTO 0.08 K/mm3 (0.00-0.10); IMMATURE GRAN PERCENT AUTO 1 % (0-1); LYMPHOCYTES ABSOLUTE AUTO 0.98 K/mm3 (0.84-5.20); LYMPHOCYTES PERCENT AUTO 12 % (21-46); MONOCYTES ABSOLUTE AUTO 0.51 K/mm3 (0.16-1.47); MONOCYTES PERCENT AUTO 6 % (4-13); Mean Corpuscular HGB 30.7 pg (26.0-34.0); Mean Corpuscular Volume 96 fL (80-100); Mean Platelet Volume 12.4 fL (9.1-12.4); NEUTROPHILS ABSOLUTE AUTO 6.41 K/mm3 (1.96-9.15); NEUTROPHILS PERCENT AUTO 77 % (41-73); Platelet Count 100 K/mm3 (150-400); RDW Coefficient Variation 12.6 % (11.7-14.2); RDW Standard Deviation 44.4 fL (35.1-46.3); Red Blood Cell Count 3.13 M/mm3 (4.30-5.90); White Blood Cell Count 8.27 K/mm3 (4.00-11.30)
[2021-09-11 05:37] LABS: Albumin, Blood 2.2 g/dL (3.4-5.0); Anion Gap 7 mmol/L (6-16); Blood Urea Nitrogen 104 mg/dL (8-24); Bun/Creatinine Ratio 54.5 (12.0-20.0); CO2, Blood 28 mmol/L (21-32); Calcium, Blood 8.7 mg/dL (8.5-10.1); Chloride, Blood 113 mmol/L (98-108); Creatinine, Blood 1.91 mg/dL (0.60-1.20); Glomerular Filtration Rate 35 (60-); Glucose, Blood 306 mg/dL (70-99); Potassium, Blood 3.1 mmol/L (3.5-5.5); Sodium, Blood 148 mmol/L (136-145)
--- NOTE | 2021-09-11 06:04 | NUR ---
SHIFT SUMMARY PATIENT ALERT, OPENING EYES SPONTANEOUSLY, NODS YES/NO TO QUESTIONS. FOLLOWS COMMANDS. BUILDING GUARD DEPUTY SHERIFF EQUAL BUT WEAK. 02 SATS 100% ON VENT, SETTINGS REMAIN UNCHANGED AC VC 12/400/5/30%, RR 15-20s. SMALL AMOUNT OF BLOODY SPUTUM SUCTIONED. LUNGS SOUND MORE CLEAR IN UPPER LOBES AND COARSE IN BASES. HR 80s. BP MAINTAINING MAP ABOVE 60 CURRENTLY. TUBE FEED, PIVOT INF 45 MLS HR, 250 FLUSHES Q4, LAST RESIDUAL REINSTILLED 15 MLS. BOWEL TONES ACTIVE. RECTAL TUBE DRAINING LIQUID BROWN STOOLS, OUTPUT LESS HOWEVER, 100 MLS THIS SHIFT. HOOD DRAINING HANS URINE, 700 MLS. BED BATH DONE. TURNED Q2 HOURS.
--- NOTE | 2021-09-11 09:46 | NUR ---
0740 ASSESSING PATIENT AFTER RECIEVING REPORT. PATIENT BOOSTED UP IN BED AND TURNED TO RIGHT SIDE. GOWN PLACED ON PATEINT ALONG WITH NEW SHEET. NEURO HE HAS BEEN OFF HIS PROPOFOL GTT SINCE 09/10/21 AT 2300 PER COMMODITY BUYER. HE OPENS EYES WITH VOICE BUT FALLS RIGHT BACK TO SLEEP. FOLLOWS SIMPLE COMMANDS AND NODDS APPROPRITATELY TO QUESTIONS. KIZZY X4. IS IN SINUS RYTHM 70-80'S, BP 90-100'S/50-60'S. HELD HIS AM METOPROLOL DOSE SO WE DIDN'T HAVE TO RESTART HIS LEVOPHED GTT. LUNGS ARE CLEAR/DIM. VENT SETTINGS AC/VC RATE 12, TIDAL VOLUME 400, FIO2 30%, PEEP 5. MINIMAL SECRETIONS. BOWEL TONES +, HAS RECTAL TUBE IN PLACE. STOOL IS THICKENING UP. HAS A F/C WITH YELLOW URINE OUT PUT. BILAT LOWER EXTREMITIES ARE BRONZE IN COLOR AND VERY DRY AND SCALELY. SKIN OTHER PANTOJA BRUISING IN BILAT GROINS. DRY THINK FRAGILE SKIN IN GENERAL. HAS A RIJ [address] LUMEN [address]TRAL LINE IN PLACE NEEDS A DRESSING CHANGE, HAS OLD BLOOD UNDER DRESSING. HOPING TO MAYBE GET A PICC PLACED AFTER MORNING ROUNDS.
--- NOTE | 2021-09-11 11:26 | NUR ---
RT ATTEMPTED A SHORT SBT, HIS RR 40'S AND TV 189 WITH PERIODS OF APNEA. SO, SBT WAS STOPPED EARLY. SHE TALKED WITH MD ABOUT RESULTS.
--- NOTE | 2021-09-11 18:15 | NUR ---
NO REAL CHANGES THROUGH OUT THE DAY. HE DID REMAIN OFF LEVOPHED GTT AND PPROPOFOL GTT ALSO. HE DID RECIEVE 100 MG LASIX IVP, HIS URINE OUTPUT AFTER WAS 850 ML. NO FAMILY CAME IN TO VISIT, HIS DID CALL FOR AN UPDATE.
--- NOTE | 2021-09-11 20:00 | NUR ---
PT RECEIVED FROM [facility]. PT IN BED, ON VENTILATOR AC /5/30%. SEEMS TO OPEN EYES SPONTANEOUSLY, DOESN'T FOLLOW COMMANDS, NODS OCC. CENTRAL LINE INTACT WITH NS TKO. TF PIVOT AT 45ML/HR, BP LABILE, CONT TO WATCH. ABD ROUND, NON TENDER TO TOUCH, RECTAL TUBE IN PLACE, HOOD TO GRAVITY DRAINAGE. RESTRAINTS OFF AT THIS TIME.
[2021-09-12 04:48] LABS: BASOPHILS ABSOLUTE AUTO 0.02 K/mm3 (0.00-0.23); BASOPHILS PERCENT AUTO 0 % (0-2); EOSINOPHILS ABSOLUTE AUTO 0.27 K/mm3 (0.00-0.68); EOSINOPHILS PERCENT AUTO 3 % (0-6); Hematocrit 31.6 % (37.0-53.0); Hemoglobin 10.2 g/dL (13.5-17.5); IMMATURE GRAN ABSOLUTE AUTO 0.12 K/mm3 (0.00-0.10); IMMATURE GRAN PERCENT AUTO 1 % (0-1); LYMPHOCYTES ABSOLUTE AUTO 0.96 K/mm3 (0.84-5.20); LYMPHOCYTES PERCENT AUTO 11 % (21-46); MONOCYTES ABSOLUTE AUTO 0.61 K/mm3 (0.16-1.47); MONOCYTES PERCENT AUTO 7 % (4-13); Mean Corpuscular HGB Conc 32.3 g/dL (31.5-36.5); Mean Corpuscular Volume 96 fL (80-100); Mean Platelet Volume 12.1 fL (9.1-12.4); NEUTROPHILS ABSOLUTE AUTO 6.66 K/mm3 (1.96-9.15); NEUTROPHILS PERCENT AUTO 77 % (41-73); Platelet Count 131 K/mm3 (150-400); RDW Coefficient Variation 12.5 % (11.7-14.2); RDW Standard Deviation 44.4 fL (35.1-46.3); Red Blood Cell Count 3.29 M/mm3 (4.30-5.90); White Blood Cell Count 8.64 K/mm3 (4.00-11.30)
[2021-09-12 05:14] LABS: Bun/Creatinine Ratio 59.3 (12.0-20.0); Calcium, Blood 8.7 mg/dL (8.5-10.1); Creatinine, Blood 1.77 mg/dL (0.60-1.20); Magnesium, Blood 2.6 mg/dL (1.6-2.4); Phosphorus, Blood 3.5 mg/dL (2.5-4.9); Potassium, Blood 4.4 mmol/L (3.5-5.5)
--- NOTE | 2021-09-12 06:06 | NUR ---
DILEEP CONTINUES ON THE VENTILATOR, AC/VC 12/400/5/30%. HIS SATS HAVE BEEN >98% THE ENTIRE SHIFT. HIS BLOOD PRESSURE HAS REMAINED STABLE. HE WILL OPEN HIS EYES WHEN SPOKEN TO, HE WITHDRAWS FROM PAIN. THERE IS NO OTHER MOVEMENT OF THE EXTREMITIES NOTED. HIS WRISTS REMAIN UNRESTRAINED AT THIS TIME. HE CONT. WITH PIVOT 1.5 @ 45ML/HR WITH 250ML H20 FLUSHES. HIS SUGARS HAVE CONTINUED IN THE 250+ RANGE T/O THE NIGHT. HE RECEIVED HIS SEMGLEE AND HIS REGULAR COVERAGE FOR BOTH MIDNIGHT AND 0600. HE CONTINUES WITH GOOD URINE OUTPUT FROM THE LASIX WITH OVER 1L OUTPUT. HIS RECTAL TUBE REMAINS IN PLACE, WITH LEAKAGE AROUND THE SITE ONCE, DRESSING PLACED OVER GLUTTEAL CRACK FOR WHAT LOOKS LIKE A SKIN TEAR AND OINTMENT PLACED AROUND THE RECTAL TUBE FOR REDNESS. FEET CONTINUE WITH PULSE BY DOPPLAR, SKIN STASIS APPEARING. NOTHING FURTHER THIS SHIFT.
--- NOTE | 2021-09-12 17:31 | NUR ---
NO NEW CHANGES TODAY. HE WAS ABLE TO BE ON SBT WITH 02/03 THROUGH OUT A GOOD PORTION OF THE DAY. HE SHOULD GO BACK TO AC/VC SETTING OVER NIGHT. CAME IN FOR A VISIT TODAY. HIS CARDIAC NUMBERS ARE IMPROVING. HIS HR 70-90'S, BP 110-140'S/40-60'S. HE DID EVEN RECIEVE HIS METOPROLOL TODAY.
--- NOTE | 2021-09-12 20:00 | NUR ---
PT RECEIVED FROM [facility] PAUL, ON THE VENTILATOR AC/VC 12/400/5/30%. HE OPENS HIS EYES WHEN SPOKEN TO, HE WILL OPEN HIS EYES ON COMMAND. HE WON'T SQUEEZE MY HAND ON COMMAND, BUT WILL MAKE AN EFFORT. HIS LUNGS ARE DIMINISHED T/O, ABD SOFT, NON TENDER, TF VIA OG OF PIVOT 1.5 @ 45ML/HR WITH 250ML H20 FLUSHES Q4H RECTAL TUBE IN PLACE, HOOD DRAINING TO GRAVITY DRAINAGE. STASIS APPEARING SKIN ON SHINS CONTINUES, MISSING LEFT GREAT TOE, ALL TOES AMPUTATED ON RIGHT. PT CONTINUES WITH ECCHYMOTIC AREAS AND DRY SKIN OVER HIS BODY. HANDS WITH DEPENDENT EDEMA, PEDAL PULSES BY DOPPLAR.
--- NOTE | 2021-09-13 | NUR ---
WHEN BATH WAS GIVEN DILEEP WAS EXPRESSIVE WITH HIS EYEBROWS, MINIMAL EXTREMITY MOVEMENT. TOLERATED BATH WELL. WHEN THE ETT WAS RE-TAPED BY R/T, PT BEGAN TO MOVE HIS UPPER EXTREMITIES. HE MADE EFFORTS TO BRING HIS ARMS UP TO HIS FACE, ALTHOUGH HE DID NOT MAKE IT THERE. NO NOTICEABLE MOVEMENT OF THE LOWER EXTREMITIES. PT CONT.TO GRIMACE WITH MOVEMENT OF THE LEGS, ie PLACING PILLOWS UNDER LEGS. PT WITHDRAWS TO INSULIN SHOT, HEPARIN SHOT AND FINGER PRICK.
[2021-09-13 03:47] LABS: BASOPHILS ABSOLUTE AUTO 0.02 K/mm3 (0.00-0.23); BASOPHILS PERCENT AUTO 0 % (0-2); EOSINOPHILS ABSOLUTE AUTO 0.25 K/mm3 (0.00-0.68); EOSINOPHILS PERCENT AUTO 3 % (0-6); Hemoglobin 10.2 g/dL (13.5-17.5); IMMATURE GRAN ABSOLUTE AUTO 0.12 K/mm3 (0.00-0.10); IMMATURE GRAN PERCENT AUTO 1 % (0-1); LYMPHOCYTES PERCENT AUTO 15 % (21-46); MONOCYTES ABSOLUTE AUTO 0.72 K/mm3 (0.16-1.47); MONOCYTES PERCENT AUTO 7 % (4-13); Mean Corpuscular HGB 31.1 pg (26.0-34.0); Mean Corpuscular HGB Conc 32.9 g/dL (31.5-36.5); Mean Corpuscular Volume 95 fL (80-100); Mean Platelet Volume 11.1 fL (9.1-12.4); NEUTROPHILS ABSOLUTE AUTO 7.33 K/mm3 (1.96-9.15); NEUTROPHILS PERCENT AUTO 74 % (41-73); Platelet Count 167 K/mm3 (150-400); RDW Coefficient Variation 12.4 % (11.7-14.2); RDW Standard Deviation 43.1 fL (35.1-46.3); Red Blood Cell Count 3.28 M/mm3 (4.30-5.90); White Blood Cell Count 9.94 K/mm3 (4.00-11.30)
[2021-09-13 04:06] LABS: Bun/Creatinine Ratio 60.8 (12.0-20.0); Calcium, Blood 8.8 mg/dL (8.5-10.1); Creatinine, Blood 1.89 mg/dL (0.60-1.20); Magnesium, Blood 2.6 mg/dL (1.6-2.4); Phosphorus, Blood 5.3 mg/dL (2.5-4.9); Potassium, Blood 3.9 mmol/L (3.5-5.5)
--- NOTE | 2021-09-13 06:12 | NUR ---
DILEEP CONTINUES ON THE VENTILATOR, SETTINGS 12/400/5/30%. MINIMAL RETURN VIA ET SUCTIONING WITH RED TINGE. TF PIVOT 1.5 @45ML/HR WITH 250ML H20 Q4HR FLUSHES. HOOD TO GRAVITY DRAINAGE W/ >2L OUTPUT, RECTAL TUBE WITH MINIMAL RETURN. PT SQUEEZED MY HAND WITH HIS LEFT HAND, NO MOVEMENT NOTED OF LE. PT CONTINUES TO OPEN EYES TO VOICE AND USE HIS EYEBROWS FOR EXPRESSION. BLOOD SUGAR BACK DOWN TO <200 THIS AM. WILL REPORT OFF TO NEXT SHIFT WHEN AVAIL.
--- NOTE | 2021-09-13 09:34 | NUR ---
DR SIU PLACED PATIENT VENT ON SPONTANEOUS BREATHING 18/5 30% FIO2. PATIENT APPEARS TO BE TOLERATING IT WELL AT THIS TIME.
--- NOTE | 2021-09-13 10:33 | NUR ---
TOMI RT AND DR SIU AT BEDSIDE, PATIENT HAVING FREQUENT APNEA PERIODS. SWITCHED VENT OVER TO SIMV RATE OF 8, TV 400, PS 20, PEEP 5. WILL SEE HOW PATIETN TOLERATES THESE VENT SETTINGS.
--- NOTE | 2021-09-13 17:29 | NUR ---
DR SIU, PRIMARY RN (MYSELF) AND JONATHAN (PT'S ) DISCUSSED CERTAIN DECISIONS THAT ARE COMING UP THAT NEED TO BE ADDRESSED. HOPING FOR DECISION ON 09/18/21. DR SIU DISCUSSED PATIENT IS OVERALL DOING BETTER BUT HAVING DIFFICULTY COMING OFF VENT WITH HIS APNEA. THE 3 OPTIONS HE OFFERED WERE 1)TO GET HIM TACHED AND SEND HIM UP TO [facility],OR TO [facility] TO BT WEANED OFF OF VENT THERE. 2) EXTUBATE AND SEE IF HE DOES WELL. IF NOT, REINTUBATE AND PLAN FOR TRACH PLACEMENT THEN GO UP TO [facility], OR FOR WEANING. 3) EXTUBATE AND SEE IF HE DOES WELL. IF NOT LET NATURE TAKES IT'S COURSE AND MAKE SURE HE IS COMFORTABLE IF HE SHOULD PASS. THERE WERE NO PROMISES THAT HOW LONG OR IF HE WOULD BE ABLE TO BE WEANED OFF OF VENT. BUT HE MIGHT EVENTUALLY BE ABLE TO TELL US WHAT HE WANTS. I WROTE THIS UP ALSO FOR PATIENT'S SO THAT SHE COULD TAKE ALL THE INFORMATION HOME AND HAVE A DICUSSION WITH ALL HER CHILDREN AND THAT THEY WOULD CLEARLY KNOW WHAT WAS DISCUSSED AND OFFERED. JONATHAN SEEMED CALM AND UNDERSTANDING OF WHAT WAS BEING SAID AND APPEARS TO BE REALISTIC IN KNOWING WHAT HER WOULD WANT. THIS WILL BE RE-ADDRESSED ON SATURDAY WITH NEW GRAVEL TRUCK DRIVER THAT WILL BE ON.
--- NOTE | 2021-09-13 18:19 | NUR ---
DILEEP REMAINS STABLE. TALKED WITH DR SIU HE WANTS TO KEEP DILEEP ON SIMV OVER NIGHT ON CURRENT SETTING OF RATE 8, TV 400, PS 20, PEEP 5. LUNGS REMAIN DIM AND TIGHT SOUNDING. HE OCCASSIONALLY COUGHS AND REQUIRES SUCTIONING. HIS SECRETIONS ARE CLEAR AND THIN. REMOVED HIS RECTAL TUBE AT 1600 AND APPLIED BARRIER CREAM TO ANAL AREA THAT IS ESCORIATED. REMOVED IT SINCE THERE IS LITTLE TO NO DRAINAGE FROM TUBE. THE BALLOON WAS INFLATED WITH 105 ML OF WATER. WAS SUPPOSED TO 45 ML OF WATER. CHECKED PAD AT 1800 WITH TURN AND HE WAS CLEAN AND DRY. PLACING ROLLED WASH CLOTHS IN HANDS TO KEEP COMFORTABLE. CAME IN EARLY TO TALK WITH DR SIU ABOUT PLAN OF CARE AND FUTURE DECISIONS THAT WILL NEED TO BE MADE BUT NOT AT THIS TIME. SHE WAS RECEPTIVE. HE WAS TURNED Q2 HR, Q4 HR ORAL CARE- HE DOES NOT LIKE ORAL CARE. THE DAY HAS PROGRESSED HIS EYES ARE MORE OPEN AND BRIGHT LOOKING THAN THEY HAVE IN PREVIOUS 2 DAYS. HE ONLY HAS GROSS MOVEMENTS OF HIS UPPER EXTREMITIES AND NOT TO COMMAND.
[2021-09-14 05:53] LABS: BASOPHILS ABSOLUTE AUTO 0.02 K/mm3 (0.00-0.23); BASOPHILS PERCENT AUTO 0 % (0-2); EOSINOPHILS PERCENT AUTO 3 % (0-6); Hematocrit 29.9 % (37.0-53.0); Hemoglobin 9.7 g/dL (13.5-17.5); IMMATURE GRAN ABSOLUTE AUTO 0.09 K/mm3 (0.00-0.10); IMMATURE GRAN PERCENT AUTO 1 % (0-1); LYMPHOCYTES ABSOLUTE AUTO 1.52 K/mm3 (0.84-5.20); LYMPHOCYTES PERCENT AUTO 15 % (21-46); MONOCYTES ABSOLUTE AUTO 0.66 K/mm3 (0.16-1.47); MONOCYTES PERCENT AUTO 7 % (4-13); Mean Corpuscular HGB 30.7 pg (26.0-34.0); Mean Corpuscular HGB Conc 32.4 g/dL (31.5-36.5); Mean Corpuscular Volume 95 fL (80-100); Mean Platelet Volume 11.4 fL (9.1-12.4); NEUTROPHILS ABSOLUTE AUTO 7.35 K/mm3 (1.96-9.15); NEUTROPHILS PERCENT AUTO 74 % (41-73); Platelet Count 202 K/mm3 (150-400); RDW Coefficient Variation 12.2 % (11.7-14.2); RDW Standard Deviation 41.9 fL (35.1-46.3); Red Blood Cell Count 3.16 M/mm3 (4.30-5.90); White Blood Cell Count 9.94 K/mm3 (4.00-11.30)
[2021-09-14 06:04] LABS: Bun/Creatinine Ratio 68.1 (12.0-20.0); Calcium, Blood 8.8 mg/dL (8.5-10.1); Creatinine, Blood 1.85 mg/dL (0.60-1.20); Phosphorus, Blood 5.6 mg/dL (2.5-4.9); Potassium, Blood 3.4 mmol/L (3.5-5.5)
--- NOTE | 2021-09-14 06:22 | NUR ---
DILEEP HAS BEEN ON SIMV RATE 8 PS 20 PEEP 5 vT400 30%. HE HAS TOLERATED IT WELL, MAINTAINING SATS @ 100%. HE HAS HAD A SMALL AMOUNT OF THICK QUEEN/WHITE RETURN FROM ET SUCTIONING. HE CONTINUES ON PIVOT 1.5 TF @ 45ML/HR WITH 250ML OF H20 Q4H. HE HAS HAD 2 BM'S THIS SHIFT, BROWN LIQUID, HIS BOTTOM CONTINUES WITH BREAKDOWN AND SMALL CLOVER PLACED OVER COCCYX. LEGS CONTINUE TO HAVE STASIS APPEARING SKIN BUT SLIGHT IMPROVEMENT WITH THE USE OF THE "EUCERIN" LOTION. HE TOLERATED HIS BATH WELL, HE HAS LIMITED SPONTANEOUS MOVEMENT. HE WILL MOVE HIS ARMS, SQUEEZE HANDS, ENGAGE HIS EYEBROWS, OPEN HIS EYES BUT NO LEG MOVEMENT. HE WITHDRAWS FROM PAIN, ie INSULIN SHOT, HEPARIN SHOT, LEG REPOSITIONING, HEAD REPOSITIONING. HE HAS BEEN TURNED Q2H, WITH Q4H ORAL CARE. BLOOD SUGARS IMPROVING OVER THE NIGHT. COVERAGE INDICATED.
--- NOTE | 2021-09-14 08:00 | NUR ---
ASSUMED CARE: REPORT RECEIVED FROM AMY Nuñez RN. ASSUMED CARE OF THIS PT AT APPROX 0700. ON ASSESSMENT, THE PT IS RESTING QUIETLY. EYES OPEN TO VERBAL STIMULUS. SPONTANEOUS MOVEMENT OF BUE NOTED & PT ABLE TO SQUEEZE THIS RN's HANDS WHEN PROMPTED. NO MOVEMENT OF BLE NOTED. LS ARE DIM/ COARSE T/O, MOD AMNTS OF QUEEN, PINK-TINGED SPUTUM SUCTIONED THROUGH ETT. VENT SETTINGS: SIMV W/ RR 8, PS 20, TV 400, PEEP 5 & FIOW 30%. PT CONTINUES HAVING EXTENDED PERIODS OF APNEA FOR WHICH VENTILATOR COMPENSATES. O2 SATS > 925. MONITOR SHOWS SR W/ HR 70s, BP STABLE. NGT IN PLACE TO L NARE, TUBE FEEDS INFUSING AT GOAL RATE W/ LOW RESIDUALS - SEE I&O. PT NOTED TO OCCASIONALLY BE BELCHING, CONTINUES HAVING MOD AMNTS BROWN LIQUID STL OUTPUT. HOOD PATENT/ DRAINING YELLOW URINE - DIURESIS PER EMAR. SKIN CONDITION OVERALL FRAGILE, INTACT. WILL CONTINUE TO MONITOR & UPDATE NEEDED.
--- NOTE | 2021-09-14 10:30 | NUR ---
DR COOK: PROVIDER AT BEDSIDE TO EVAL PT. NOTIFIED HER OF PT's PINK-TINGED SPUTUM OUTPUT & CURRENT LOC. NO CHANGES AT THIS TIME.
--- NOTE | 2021-09-14 14:49 | NUR ---
UPDATE: CALL TO DR SCHMID REGARDING PT's CONTINUED C/O NAUSEA & VOMITING. ORDERS PLACED FOR ADDITIONAL NOW DOSE OF ZOFRAN & PROMETHAZINE ALSO ORDERED TO BE GIVEN AFTER ZOFRAN IF N/V NOT IMPROVED.
--- NOTE | 2021-09-14 16:27 | NUR ---
SHIFT SUMMARY: NO ACUTE CHANGES SINCE PRIOR UPDATES. PT CONTINUES OPENING EYES TO VERBAL STIMULUS & MOVING BUE, NO MOVEMENT OF BLE NOTED. LS COARSE, DIM T/O. VENT SETTINGS UNCHANGED, O2 SATS > 92%. MONITOR SHOWS SR W/ HR 70s, BP STABLE. NGT TO L NARE INFUSING TUBE FEEDS AT GOAL. TUBE FEED & TUBING CHANGED THIS AFTERNOON. HOOD PATENT/ DRAINING YELLOW URINE - SEE I&O. SKIN CONDITION OVERALL FRAGILE, INTACT. WILL CONTINUE TO MONITOR & REPORT OFF TO ONCOMING RN.
--- NOTE | 2021-09-14 22:42 | NUR ---
ASSUME CARE: PT INTUBATED LYING IN BED W/ EYES CLOSED RESTING QUIETLY. HE OPENS EYES TO SOUND AND WITHDRAWS TO PAIN BUT NOT FOLLOWING ANY COMMANDS. HE MOVES HIS HANDS AND FEET SPONTANEOUSLY. VENT SETTINGS ARE SIMV 8/400/5/30% W/ PS:20 AND SATING 99%. HR AND BP WNL. HOOD IN PLACE DRAINING YELLOW URINE TO GRAVITY. NGT IN LEFT NARE TO TF RUNNING AT GOAL. MEPLIEX IN PLACE ON SACRUM AND ALL TOES AMPUTATED ON RIGHT FOOT AND GREAT TOE AMPUTATED ON LEFT FOOT. REDNESS AND SCALING NOTED TO BLE. SEE SHIFT ASSESSMENT FOR DETAILS.
[2021-09-15 09:16] LABS: BASOPHILS ABSOLUTE AUTO 0.02 K/mm3 (0.00-0.23); BASOPHILS PERCENT AUTO 0 % (0-2); EOSINOPHILS ABSOLUTE AUTO 0.16 K/mm3 (0.00-0.68); EOSINOPHILS PERCENT AUTO 2 % (0-6); Hematocrit 31.2 % (37.0-53.0); Hemoglobin 10.1 g/dL (13.5-17.5); IMMATURE GRAN ABSOLUTE AUTO 0.11 K/mm3 (0.00-0.10); IMMATURE GRAN PERCENT AUTO 1 % (0-1); LYMPHOCYTES ABSOLUTE AUTO 1.03 K/mm3 (0.84-5.20); LYMPHOCYTES PERCENT AUTO 11 % (21-46); MONOCYTES ABSOLUTE AUTO 0.66 K/mm3 (0.16-1.47); MONOCYTES PERCENT AUTO 7 % (4-13); Mean Corpuscular HGB 30.2 pg (26.0-34.0); Mean Corpuscular HGB Conc 32.4 g/dL (31.5-36.5); Mean Corpuscular Volume 93 fL (80-100); Mean Platelet Volume 10.7 fL (9.1-12.4); NEUTROPHILS ABSOLUTE AUTO 7.69 K/mm3 (1.96-9.15); NEUTROPHILS PERCENT AUTO 80 % (41-73); Platelet Count 291 K/mm3 (150-400); RDW Coefficient Variation 11.9 % (11.7-14.2); RDW Standard Deviation 40.5 fL (35.1-46.3); Red Blood Cell Count 3.34 M/mm3 (4.30-5.90); White Blood Cell Count 9.67 K/mm3 (4.00-11.30)
[2021-09-15 09:34] LABS: pH Blood Venous 7.45 (7.34-7.37)
--- NOTE | 2021-09-15 19:42 | NUR ---
SHIFT SUMMARY: PT CONTINUES TO OPEN EYES SPONTANEOUSLY, WITHDRAWS FROM PAINFUL STIMULI, UNABLE TO TRACK OR FOLLOW COMMANDS. PT GRIMICES WITH ORAL CARE. PT CONTINUES TO BE IN SR WITH HR IN THE 80'S, BP STABLE. PT VENT SETTINGS UNCHANGED, SPO2 ABOVE 90% TUBE FEED RUNNING AT GOAL 45ML/HR. PT CONTINUES TO HAVE LOOSE BM'S, BROWN IN COLOR WITH BRIGHT RED ANAL DRAINAGE AT TIMES, MADE AWARE. ORDERS TO CHECK H&H, REMAINS STABLE, ORDERS TO CONTINUE WITH HEPARIN ORDERED. PT REPOSITIONED Q2HRS TO PREVENT FURTHER SKIN BREAKDOWN.
--- NOTE | 2021-09-15 19:55 | NUR ---
ASSUME CARE: PT INTUBATED AND LYING IN BED W/ EYES CLOSED RESTING QUIETLY. HE WILL OPEN EYES TO SOUND AND WITHDRAW FROM PAIN. HE SOMETIMES FOLLOWS COMMANDS LIKE MOVING HIS FINGERS AND FEET BUT VERY WEAKLY. GRIMACES W/ TURNS AND ORAL CARE. VENT SETTINGS ARE SIMV 8/400/5/30% PS:20 AND SATING 98%. HR IS CURRENTLY 78 AND BP 142/60. NGT IN LEFT NARE IN PLACE WITH TUBE FEEDS RUNNING AT GOAL W/ SCANT RESIDUALS. TEMP HOOD IN PLACE DRAINING YELLOW URINE TO GRAVITY. PT IS AFEBRILE. SCALY, REDNESS NOTE TO BLE AND ALL TOES AMPUTATE ON R FOOT AND GREAT TOE AMPUTATED ON L FOOT. REDNESS NOTED TO SACRUM BUT DUE TO FREQUENT LIQUID STOOLS IT IS OPEN TO AIR. SEE SHIFT ASSESSMENT FOR DETAILS.
[2021-09-16 04:07] LABS: PCO2 Arterial 46.9 mmHg (35-45); PO2 Arterial 99.2 mmHg (80-100); pH Blood Arterial 7.52 (7.35-7.45)
[2021-09-16 04:48] LABS: BASOPHILS ABSOLUTE AUTO 0.02 K/mm3 (0.00-0.23); BASOPHILS PERCENT AUTO 0 % (0-2); EOSINOPHILS ABSOLUTE AUTO 0.11 K/mm3 (0.00-0.68); EOSINOPHILS PERCENT AUTO 1 % (0-6); Hematocrit 31.2 % (37.0-53.0); Hemoglobin 10.1 g/dL (13.5-17.5); IMMATURE GRAN ABSOLUTE AUTO 0.12 K/mm3 (0.00-0.10); IMMATURE GRAN PERCENT AUTO 2 % (0-1); LYMPHOCYTES ABSOLUTE AUTO 0.96 K/mm3 (0.84-5.20); LYMPHOCYTES PERCENT AUTO 12 % (21-46); MONOCYTES ABSOLUTE AUTO 0.62 K/mm3 (0.16-1.47); MONOCYTES PERCENT AUTO 8 % (4-13); Mean Corpuscular HGB 30.1 pg (26.0-34.0); Mean Corpuscular HGB Conc 32.4 g/dL (31.5-36.5); Mean Corpuscular Volume 93 fL (80-100); Mean Platelet Volume 10.3 fL (9.1-12.4); NEUTROPHILS ABSOLUTE AUTO 6.35 K/mm3 (1.96-9.15); NEUTROPHILS PERCENT AUTO 78 % (41-73); Platelet Count 363 K/mm3 (150-400); RDW Coefficient Variation 11.9 % (11.7-14.2); RDW Standard Deviation 39.8 fL (35.1-46.3); Red Blood Cell Count 3.35 M/mm3 (4.30-5.90); White Blood Cell Count 8.18 K/mm3 (4.00-11.30)
[2021-09-16 05:11] LABS: Bun/Creatinine Ratio 81.6 (12.0-20.0); Calcium, Blood 8.6 mg/dL (8.5-10.1); Creatinine, Blood 1.85 mg/dL (0.60-1.20); Phosphorus, Blood 6.1 mg/dL (2.5-4.9)
--- NOTE | 2021-09-16 05:33 | NUR ---
CRITICAL LABS INFORMED DR. NOLAND OF CRITICAL BUN OF 151. POTASSIUM ALSO 3.0. HE ORDERED 40MEQ OF KCL.
--- NOTE | 2021-09-16 05:55 | NUR ---
SHIFT SUMMARY: PT REMAINS INTUBATED W/ SAME VENT SETTINGS OF SIMV 8/400/5/30% PS:20 AND IS CURRENTLY SATING 99%. HE OPENS HIS EYES TO SOUND, WITHDRAWS TO PAIN, GRIMACES W/ ORAL CARE AND TURNS, AND MOVES BUE AND FEET. HE WILL SOMETIMES FOLLOW COMMANDS AND SEEMS TO BE AWARE BUT DOES NOT TRACK AND IS NOT CONSISTENT W/ DIRECTIONS. HR REMAINED IN THE 80'S THROUGHT THE NIGHT AND BP HAS BEEN STABLE. NGT IN LEFT NARE REMAINS INTACT WITH TF RUNNING TO GOAL W/ MINIMAL RESIDUALS. HOOD CONTINUES TO DRAIN YELLOW URINE TO GRAVITY. SKIN IS WARM AND INTACT AND PT HAS BEEN AFEBRILE. BLOOD SUGARS AROUND THE 300'S T/O THE SHIFT, COVERED W/ SS INSULIN PER EMAR. CURRENTLY REPLACING POTASSIUM OF 3.0 W/ 40MEQ KCL. WILL REPORT TO ONCOMING RN WHEN AVAILABE.
[2021-09-16 12:22] LABS: Hematocrit 30.2 % (37.0-53.0); Hemoglobin 10.1 g/dL (13.5-17.5)
--- NOTE | 2021-09-16 19:00 | NUR ---
ASSUME CARE: PT INTUBATED AND IN SWB RESTRAINTS RESTING QUIETLY. VENT SETTINGS ARE SIMV 8/400/5/30% PS:20. VITALS WNL AND PT AFEBRILE. PT SOMETIMES FOLLOWS COMMANDS, OPENS EYES, WITHDRAWS FROM PAIN, MOVES HIS HANDS AND FEET, AND GRIMACES WITH ORAL CARE AND TURNS. HOOD DRAINING YELLOW URINE TO GRAVITY. NGT TUBE IN PLACE CURRENTLY CLAMPED AND IS GETTING GOLYTELY Q10MIN. SKIN IS WARM AND DRY W/ RED, SCALING NOTED TO THE BLE. ALL TOES AMPUTATED ON R FOOT AND GREAT TOE ON L FOOT. REDNESS NOTED TO THE SACRUM WHICH IS OPEN TO AIR. WILL BE APPLIED A FECAL POUCH SINCE PT IS NOT A CANIDATE FOR RECTAL TUBE D/T POSSIBLE BLEEDING. PROTONIX DRIP WILL BE STARTED. SEE SHIFT ASSESSMENT FOR DETAILS.
--- NOTE | 2021-09-16 19:03 | NUR ---
SUZANNE orientation fully d/t intubation, follows commands, pupils 3mm brisk, nonverbal indicators of pain not present, restraints initiated for attempt to pull ET tube, NSR 80s, BP WNL, weak pulses +1 throughout, corase lungs, scant to moderate secretions w/ evidence of blood tinge sputum end of shift MD aware, rounded abdomen, hyperactive bowels, 2 maroon moderate stools MD aware, plan to EGD scope Pt in AM, TF off at 1830, golytly initiated will contact MD when completed, H&H stable with hemodynamic stability no change, UOP adequate with lasix/diamox anson output, family updated on care, q2 turns completed for skin integrity.
--- NOTE | 2021-09-16 21:12 | NUR ---
ALEM ARGUELLES AT BEDSIDE INQUIRNG ABOUT STATUS OF GOLYTELY. INFORMED HIM ABOUT HALF THE JUG HAS BEEN GIVEN AND PT HAD HIS FIRST BM. HE STATES TO GIVE THE ENTIRE JUG, EVEN IF PT CLEARS OUT. HE STATES THAT IF HE IS NOT CLEAR AFTER THE FIRST JUG TO GIVE ANOTHER JUG. HE ALSO ORDERED 250ML FLUSHED Q3HRS UNTIL 0600. HE STATES HE DOES NOT NEED A CALL WHEN THE GOLYTELY IS FINISHED.
[2021-09-16 22:34] LABS: Influenza A, PCR NEGATIVE (NEGATIVE); Influenza B, PCR NEGATIVE (NEGATIVE); Resp Syncytial Virus, PCR NEGATIVE (NEGATIVE); SARS-Cov-2 (COVID-19) PCR, MMC NEGATIVE (NEGATIVE)
[2021-09-17 03:41] LABS: BASOPHILS ABSOLUTE AUTO 0.02 K/mm3 (0.00-0.23); BASOPHILS PERCENT AUTO 0 % (0-2); EOSINOPHILS ABSOLUTE AUTO 0.13 K/mm3 (0.00-0.68); EOSINOPHILS PERCENT AUTO 1 % (0-6); Hematocrit 30.6 % (37.0-53.0); Hemoglobin 10.3 g/dL (13.5-17.5); IMMATURE GRAN ABSOLUTE AUTO 0.14 K/mm3 (0.00-0.10); IMMATURE GRAN PERCENT AUTO 2 % (0-1); LYMPHOCYTES ABSOLUTE AUTO 1.12 K/mm3 (0.84-5.20); LYMPHOCYTES PERCENT AUTO 12 % (21-46); MONOCYTES PERCENT AUTO 6 % (4-13); Mean Corpuscular HGB 30.8 pg (26.0-34.0); Mean Corpuscular HGB Conc 33.7 g/dL (31.5-36.5); Mean Corpuscular Volume 92 fL (80-100); Mean Platelet Volume 9.9 fL (9.1-12.4); NEUTROPHILS ABSOLUTE AUTO 7.55 K/mm3 (1.96-9.15); NEUTROPHILS PERCENT AUTO 79 % (41-73); Platelet Count 412 K/mm3 (150-400); RDW Coefficient Variation 11.9 % (11.7-14.2); RDW Standard Deviation 39.5 fL (35.1-46.3); Red Blood Cell Count 3.34 M/mm3 (4.30-5.90); White Blood Cell Count 9.56 K/mm3 (4.00-11.30)
[2021-09-17 03:59] LABS: Albumin, Blood 2.3 g/dL (3.4-5.0); Anion Gap 12 mmol/L (6-16); Blood Urea Nitrogen 133 mg/dL (8-24); Bun/Creatinine Ratio 79.6 (12.0-20.0); CO2, Blood 38 mmol/L (21-32); Calcium, Blood 8.3 mg/dL (8.5-10.1); Chloride, Blood 91 mmol/L (98-108); Creatinine, Blood 1.67 mg/dL (0.60-1.20); Glomerular Filtration Rate 41 (60-); Glucose, Blood 61 mg/dL (70-99); Magnesium, Blood 2.9 mg/dL (1.6-2.4); Phosphorus, Blood 6.3 mg/dL (2.5-4.9); Potassium, Blood 2.8 mmol/L (3.5-5.5); Sodium, Blood 141 mmol/L (136-145)
--- NOTE | 2021-09-17 04:40 | NUR ---
HYPOGLYCEMIA PT HAD CRITICAL BLOOD SUGAR OF 49. PER DENITRATOR OPERATOR, OVERRODE 1 AMP OF D50. CALLED AND SPOKE WITH WHO STATES THAT IF STILL HYPOGLYCEMIC AT THE 15MIN RECHECK TO GIVE ANOTHER AMP AND EITHER WAY RECHECK IN 1 HOUR. IF SECOND AMP IS NEEDED AND STILL HYPOGLYCEMIC ON THE 1 HOUR CHECK, START D5 1/2NS AT 50ML/HR. CONTINUE W/ 1 HOUR RECHECKS AND MAY INCREASE UP TO D5 1/2NS TO 100 IN 25ML/HR INCREMENTS. ORDERS PLACED FOR PRN D50 AND WILL RECHECK BLOOD SUGAR AT 0445.
--- NOTE | 2021-09-17 06:36 | NUR ---
SHIFT SUMMARY: PT REMAINS INTUBATED AND IN SWB RESTRAINTS. THIS AM HE WAS HYPOGLYCEMIC W/ A BLOOD SUGAR OF 49. AFTER 1 AMP OF D50 B.S. CAME UP TO 143 AND 30 MINUTES AGO IT WAS 110. PER DR. NOLAND, D5 1/2NS MAY HAVE TO BE STARTED UNTIL TF ARE RESUMED. VENT SETTING REMAIN THE SAME AT SIMV 8/400/5/30% PS: 20. HR AND BP STABLE T/O THE SHIFT. SINCE AROUND 0600, PT HAS HAD SEVERAL APNEIC EPISODES AND IRREGULAR RESPIRATORY PATTERNS BUT SATS REMAIN >95%. HE IS MORE LETHARGIC THIS MORNING AND STILL ONLY SOMETIMES FOLLOWS DIRECTIONS. HE WILL OPEN HIS EYES SPONTANEOUSLY, MOVE HIS HANDS AND FEET, AND GRIMACES W/ ORAL CARE AND TURNS. PT SEEMS AWARE BUT UNCOORAPERATIVE. HOOD STILL IN PLACE DRAINING YELLOW URINE TO GRAVITY. RECTAL POUCH REMAINS INTACT DRAINING CLEAR, WATERY, YELLOW/GREEN STOOL. H20 FLUSHES OFF AT [address] ARGUELLES. SKIN REMAINS WARM AND DRY AND PT HAS BEEN AFEBRILE T/O THE SHIFT. POTASSIUM THIS AM WAS 2.8 SO 3 BAGS OF 20 MEQ KCL ORDERED PER ELECTROLTYE PROTOCOL, BAG 2/3 INFUSING AT 50ML/HR. PROTONIX DRIP ALSO INFUSING AT 10ML/HR. PLAN IS TO HAVE EDG THIS MORNING AND POSSIBLE COLONOSCOPY. WILL REPORT TO ONCOMING RN WHEN AVAILABLE.
--- NOTE | 2021-09-17 18:22 | NUR ---
CONTACTED MD GOETZ ABOUT 3.2 RESULT. VERBALIZED SHE WOULD ORDER REPLACEMENT.
--- NOTE | 2021-09-17 18:23 | NUR ---
SUZANNE ORIENTATION FULLY, FOLLOWS COMMANDS, OPENS EYES INTERMITTANTLY ON COMMAND, PUPILS 3MM BRISK, NSR 80S THIS SHIFT, BP WNL, INTUBATED ON SIMV REQUIRES INTERMITTANT VENT ASSISTANCE, SCANT SECRETIONS AT TIMES BLOOD TINGED, LUNGS COARSE/DIM, NONVERBAL INDICATORS OF PAIN NOT PRESENT, ABDOMEN NON-TENDER 250 GREEN/CLEAR OUTPUT RECTALLY NO EVIDENCE OF BLOOD, EGD CANCELED D/T CLEAR OUTPUT W/ STABLE VITALS AND LABS, TF RESTARTED TOLERATING WELL, AUDIBLE BOWELS, UOP ADEQUATE HANS, K REPLACED WITH 60MEQ, UPDATED ON CARE.
--- NOTE | 2021-09-17 21:19 | NUR ---
PROTONIX KARIN SPOKE W/ DR. ARGUELLES IN REGARDS TO PROTONIX DRIP TO VERIFY IF HE NEEDED THE INFUSION SINCE HE DID NOT GET THE EGD/COLONOSCOPY. HE STATES TO D/C THE DRIP AND CHANGE TO PROTONIX 40MG IV QD.
[2021-09-18 04:11] LABS: BASOPHILS ABSOLUTE AUTO 0.01 K/mm3 (0.00-0.23); BASOPHILS PERCENT AUTO 0 % (0-2); EOSINOPHILS ABSOLUTE AUTO 0.12 K/mm3 (0.00-0.68); EOSINOPHILS PERCENT AUTO 2 % (0-6); Hematocrit 31.6 % (37.0-53.0); Hemoglobin 10.6 g/dL (13.5-17.5); IMMATURE GRAN ABSOLUTE AUTO 0.11 K/mm3 (0.00-0.10); IMMATURE GRAN PERCENT AUTO 1 % (0-1); LYMPHOCYTES ABSOLUTE AUTO 0.93 K/mm3 (0.84-5.20); LYMPHOCYTES PERCENT AUTO 12 % (21-46); MONOCYTES ABSOLUTE AUTO 0.53 K/mm3 (0.16-1.47); MONOCYTES PERCENT AUTO 7 % (4-13); Mean Corpuscular HGB 30.7 pg (26.0-34.0); Mean Corpuscular HGB Conc 33.5 g/dL (31.5-36.5); Mean Corpuscular Volume 92 fL (80-100); NEUTROPHILS ABSOLUTE AUTO 6.32 K/mm3 (1.96-9.15); NEUTROPHILS PERCENT AUTO 79 % (41-73); Platelet Count 441 K/mm3 (150-400); RDW Coefficient Variation 12.3 % (11.7-14.2); RDW Standard Deviation 39.2 fL (35.1-46.3); Red Blood Cell Count 3.45 M/mm3 (4.30-5.90); White Blood Cell Count 8.02 K/mm3 (4.00-11.30)
[2021-09-18 04:29] LABS: Bun/Creatinine Ratio 84.6 (12.0-20.0); Calcium, Blood 8.3 mg/dL (8.5-10.1); Creatinine, Blood 1.49 mg/dL (0.60-1.20); Magnesium, Blood 2.8 mg/dL (1.6-2.4); Phosphorus, Blood 4.8 mg/dL (2.5-4.9); Potassium, Blood 3.3 mmol/L (3.5-5.5)
[2021-09-18 06:09] LABS: Bicarbonate Venous 33.6 mmol/L (24.0-30.0); PO2 Venous 75.9 mmHg (38-42)
--- NOTE | 2021-09-18 06:22 | NUR ---
SHIFT SUMMARY: NO ACUTE OVERNIGHT EVENTS. PT REMAINS INTUBATED AND IN SWB RESTRAINTS. VENT SETTINGS ARE SIMV 16/400/5/30% PS 20 AND SATING 100%. HE WITHDRAWS TO PAIN BUT HAS NOT FOLLOWED ANY COMMANDS THIS SHIFT. HIS VITALS HAVE BEEN WNL W/ HR IN THE 70'S AND SBP IN THE 130-140'S. HOOD IN PLACE DRAINING YELLOW URINE TO GRAVITY. RECTAL POUCH STILL IN PLACE BUT STOOL FLOW HAS SLOWED SIGNIFICANTLY FROM PREVIOUS SHIFT. LEFT NARE NGT TO TF RUNNING AT GOAL W/ SCANT RESIDUALS. SKIN IS WARM, DRY, AND HE HAS BEEN AFEBRILE. WILL REPORT TO ONCOMING RN WHEN AVAILABLE.
--- NOTE | 2021-09-18 11:16 | NUR ---
In-depth t/c with pt's Rupinder yesterday afternoon re: pt's current condition and likely outcome/prognostication. She has been waiting on her daughter to arrive from out of state, and apparently the daughter will be here late tonight. As of today, Rupinder states they would like to plan for withdrawal of care tomorrow, 09/19 at 1600. Will relay this to ICU charge and bedside RN.
--- NOTE | 2021-09-18 18:03 | NUR ---
Not following commands this shift, pupils 3mm brisk, withdraws from pain, coarse lungs with scant/moderate secretions, on acvc 30% sats WNL, VSS, UOP adequate anson, large type 7 green/brown output, rectal tube placed, plan is for comfort care measure tomorrow at 1600.
--- NOTE | 2021-09-19 13:42 | NUR ---
Pt's condition remains unchanged; and family have not changed current plans for terminal withdrawal at approx 1600 today, 09/19.
--- NOTE | 2021-09-19 18:15 | NUR ---
PATIENT EXTUBATED AND PLACED ON COMFORT CARE HE WAS GIVEN 5 MG MORPHINE FOR COMFORT TO START OFF WITH. HE USES MORPHONE CHRONICALLY AT HOME. HE APPEARS TO BE COMFORTABLE AND IN NO DISTRESS. FAMILY IS AT BEDSIDE. HE DOES NOT LOOK LIKE HE IS GOING TO PASS ANY TIME SOON. FAMILY IS ASKING APPROPRIATE QUESTIONS AND LOTS OF THEM. THEY MAY GO HOME FOR THE NIGHT SINCE HE DOES NOT LOOK EMINENT AT THIS TIME. STILL HAVE LEAKAGE AROUND RECTAL TUBE. TURNING Q2 HR AND PROVIDING COMFORT CARE MEASURES AT THIS TIME. FOLLOWING FAMILY'S LEAD IN HIS CARE.
--- NOTE | 2021-09-19 18:50 | NUR ---
FAMILY WENT HOME FOR THE NIGHT SINCE HE IS NOT LOOKING EMINENT. THEY ASKED FOR MORE PAIN MEDICATIONS TO BE GIVEN. HE WAS GIVEN 2 MG IVP. HE WAS CLEANED UP FOR RECTAL TUBE LEAKAGE AND CHUX CHANGED, CREAM APPLIED TO RECTUM, AURELIANO ANAL AREA AND SCROTUM. PATIENT MOANS AND IS PROTECTIVE OF AREA THAT ARE PAINFUL. HE HAS NOT BEEN VERBAL OTHER THAN MOANS OF PAIN. HE WAS TURNED TO HIS RIGHT SIDE.
--- NOTE | 2021-09-19 19:15 | NUR ---
ASSUMPTION OF CARE: PT IS A COMFORT CARE DNR, EXTUBATED ON DAY SHIFT TODAY. PT IS RESTING COMFORTABLY WITH EYES CLOSED. SINUS RHYTHM ON THE MONITOR. NO S/S OF DISTRESS OR DISCOMFORT AT TIME OF ASSESSMENT. RIGHT IJ, HOOD CATHETER AND RECTAL TUBE STILL IN PLACE. FAMILY HAS GONE HOME FOR THE NIGHT.
--- NOTE | 2021-09-19 21:08 | NUR ---
transfer report from [facility] PICKLE PROCESSOR on 71 year old Male changed to DNR DNI Comfort Care post extubation in ICU. PT was admitted on 09/01/21 with NSTEMI & went to nursery laborer x 2 per RN report. PT has MRSA in Sputum will be contact isolation. Has chino cath & rectal tube placed yesterday per report for multiple liquid stools. 2 l NC for comfort. Await admission. Reported Spouse & DTR were in ICU to visit PT & were comfortable with comfort care.
--- NOTE | 2021-09-19 21:38 | NUR ---
TRANSFER NOTE: REPORT GIVEN TO CAMILA FOR PT TRANSFER TO ROOM 306. PT WAS TRANSFERRED VIA BED TO ROOM 306. RECEIVING NURSE AT BEDSIDE WITH NO FURTHER QUESTIONS FOR THIS NURSE. PT WITH NO S/S OF DISTRESS AT TIME OF TRANSFER. BELONGINGS TRANSFERRED WITH PT WELL.
--- NOTE | 2021-09-19 22:03 | NUR ---
ICU transfer on comfort care Bush & rectal tube patent. Triple lumen rt IJ present. 2 l NC per family request.
--- NOTE | 2021-09-20 04:45 | NUR ---
PT continues on 2 l oxygen onb comfort care, minimally responsive, no verbalizations. Bush & rectal tube patent & draining. NPO, no s/sx pain anxiety or dyspnea.
--- NOTE | 2021-09-20 16:47 | NUR ---
DAY SHIFT SUMMARY/COMFORT CARE PT ON COMFORT CARE. DECREASE IN LOC FROM THIS AM. HOOD AND RECTAL TUBE PATENT AND DRAINING WITH GRAVITY. REPOSITIONED Q2 AND WITH FAMILY REQUEST. FAMIY IN TO VISIT WITH PT AT BEDSIDE. NO VERBAL OR NONVERBAL SIGNS OF PAIN/DISCOMFORT.
--- NOTE | 2021-09-21 04:13 | NUR ---
PATIENT HAD AN UNEVENTFUL NIGHT. PAIN MEDICATION ADMINISTERED WHEN DAUGHTER CAME TO VISIT AT THE START OF SHIFT ONLY BECAUSE SHE REQUESTED IT, HOWEVER THE PATIENT APPEARS TO BE COMFORTABLE. PATIENT REPOSITIONED Q2HRS AND PRN AND COMFORT CARE PROTOCOLS FOLLOWED. HE HAS NOT BEEN RESPONSIVE. GOOD URINE OUTPUT NOTED AND IS DRAINING BY GRAVITY VIA HOOD. WILL CONTINUE TO PROVIDE CC MEASURES PER PROTOCOL.
--- NOTE | 2021-09-21 09:20 | NUR ---
Pt resting, appears to be comfortable and in no distress at this time. Nursing reports that pt did not awaken and respond this morning to care. No family in room during visit. PC to continue to follow for symptom management and supportprn.
--- NOTE | 2021-09-21 18:30 | NUR ---
PT ON COMFORT CARE, REPOSITIONED Q 2 HRS. HOOD AND RECTAL TUBE PATENT AND DRAINGING. PT HAS BEEN MOSTLY NON RESPONSIVE, DID OPEN EYES THIS AFTERNOON AND RESPONDED "YES" WHEN ASKED IF HE WAS IN PAIN. MEDICATED PER EMAR. FAMILY AT BEDSIDE FOR A SHORT TIME THIS MORNING, NO ACUTE CHANGES NOTED THIS SHIFT, WILL CONTINUE TO MONITOR AND REPORT TO ONCOMING RN
--- NOTE | 2021-09-21 19:42 | NUR ---
MEDICATED PT WITH ROXANOL 10MG SL PER FAMILY REQUEST. DAUGHTER AND AT BEDSIDE. PT NONVERBAL FOR STAFF. DAUGHTER STATES HE RESPONDS TO HER. PILLOWS PLACED UNDER EACH ARM FOR COMFORT. HOOD PATENT AND DRAINING YELLOW URINE, RECTAL TUBE IN PLACE. WILL REPOSITION EVERY TWO HOURS AND PERFORM ORAL CARE NEEDED.
--- NOTE | 2021-09-21 19:48 | NUR ---
FRESH WATER AND MOUTH SWABS TAKEN INTO ROOM.
--- NOTE | 2021-09-21 20:14 | NUR ---
FAMILY AT BEDSIDE. PT RESTING COMFORTABLY. NO DISTRESS NOTED. FAMILY STATES HE LOOKS COMFORTABLE.
--- NOTE | 2021-09-21 20:38 | NUR ---
REPOSITIONED PT TO LEFT SIDE, HEELS AND BILAT ARMS FLOATED ON PILLOWS. ORAL CARE GIVEN. FAMILY AT BEDSIDE. NO OTHER NEEDS. PT RESTING COMFORTABLY.
--- NOTE | 2021-09-21 22:05 | NUR ---
MEDICATED PT WITH ROXANOL 10MG SL FOR COMFORT CARE. ORAL CARE PROVIDED AND REPOSITIONED PT FOR COMFORT.
--- NOTE | 2021-09-21 22:26 | NUR ---
PT RESTING COMFORTABLY. NO DISTRESS NOTED.
--- NOTE | 2021-09-22 00:12 | NUR ---
PT REPOSITIONED FOR COMFORT. NO DISTRESS NOTED. PT RESTING COMFORTABLY. BED ALARM ON.
--- NOTE | 2021-09-22 02:05 | NUR ---
PT APPEARS TO BE RESTING COMFORTABLY. NO DISTRESS NOTED.
--- NOTE | 2021-09-22 05:01 | NUR ---
SHIFT SUMMARY: MEDICATED PT WITH ROXANOL 10MG SL X 3 FOR COMFORT CARE. PT NONVERBAL. OPENED EYES A FEW TIMES, NO EYE CONTACT. CURRENTLY ON 1L OXYGEN FOR COMFORT. REPOSITIONED PT AND ORAL CARE GIVEN EVERY TWO HOURS. HOOD PATENT AND DRAINING YELLOW URINE, RECTAL TUBE IN PLACE. HEELS FLOATED. CENTRAL LINE PATENT. WILL CONTINUE TO PROVIDE CARE UNTIL SHIFT REPORT TO ONCOMING NURSE.
--- NOTE | 2021-09-22 06:10 | NUR ---
PT CONTINUES TO REST QUIETLY. NO DISTRESS NOTED.
--- NOTE | 2021-09-22 15:20 | NUR ---
Comfort Care Visit Pt resting in bed with his eyes closed. Pt remains with his eyes closed with verbal stimuli and gentle touch but does slightly move his head and respirations increase to stimuli. Slight mottling noted on Pt's right knee. Spoke with Primary RN Monique, discussed case and reviewed comfort medications. Spoke with House Painter Helper Teetee and discussed case. Pt appears to be transitioning. Palliative Care will remain available.
--- NOTE | 2021-09-22 18:22 | NUR ---
PT REMAINS ON COMFORT CARE, BREATHING SLIGHTLY LABORED AT TIMES, HE HAS BEEN MORE RESTLESS AND SOME GRIMACING THIS SHIFT, MEDICATED SEVERAL TIMES WITH SL ROXANOL 10MG AND O.5 IV ATIVAN X 1. FAMILY HAS BEEN IN AND OUT OF ROOM TODAY, CURRENTLY GONE. NO ACUTE CHANGES NOTED THIS SHIFT, WILL CONTINUE TO MONITOR AND REPORT TO ONCOMING RN.
--- NOTE | 2021-09-23 01:13 | NUR ---
Dr. Gonzalo Duran notified of patients passing at 0020 by phone.
--- NOTE | 2021-09-23 01:49 | NUR ---
PT FOUND TO BE APNEIC AT 0020 WITH NO HEARTBEAT ON AUSCULTATION. FAMILY WAS CONTACTED. SON IS TO COME IN TO BE WITH PT. DONOR LINE CONTACTED. SON REFUSES PASTORAL CARE.
== END 2021-09-23 00:20 | DRG 853 ==
LOC: ER 00:20 → ICUW 02:44 → MEDS 09-19 21:15
PROVIDERS: Internal Medicine; Internal Medicine Critical Care Medicine; Internal Medicine Gastroenterology; Student in an Organized Health Care Education/Training Program; ADMIT Internal Medicine
PROC: 5A09457 Assistance with Respiratory Ventilation, 24-96 Consecutive Hours, Continuous Positive Airway Pressure (ICD-10-PCS; 2021-09-01)
PROC: 3E02340 Introduction of Influenza Vaccine into Muscle, Percutaneous Approach (ICD-10-PCS; 2021-09-01)
PROC: 5A02210 Assistance with Cardiac Output using Balloon Pump, Continuous (ICD-10-PCS; 2021-09-02)
PROC: 0BH18EZ Insertion of Endotracheal Airway into Trachea, Via Natural or Artificial Opening Endoscopic (ICD-10-PCS; principal; 2021-09-03)
PROC: 5A1955Z Respiratory Ventilation, Greater than 96 Consecutive Hours (ICD-10-PCS; 2021-09-03)
PROC: 02HV33Z Insertion of Infusion Device into Superior Vena Cava, Percutaneous Approach (ICD-10-PCS; 2021-09-03)
PROC: 027034Z Dilation of Coronary Artery, One Artery with Drug-eluting Intraluminal Device, Percutaneous Approach (ICD-10-PCS; 2021-09-06)
PROC: 4A023N7 Measurement of Cardiac Sampling and Pressure, Left Heart, Percutaneous Approach (ICD-10-PCS; 2021-09-06)
PROC: B2111ZZ Fluoroscopy of Multiple Coronary Arteries using Low Osmolar Contrast (ICD-10-PCS; 2021-09-06)
PROC: 3E043XZ Introduction of Vasopressor into Central Vein, Percutaneous Approach (ICD-10-PCS; 2021-09-06)
PROC: B24BZZZ Ultrasonography of Heart with Aorta (ICD-10-PCS; 2021-09-06)
PROC: B2121ZZ Fluoroscopy of Single Coronary Artery Bypass Graft using Low Osmolar Contrast (ICD-10-PCS; 2021-09-06)
DX: A41.9 Sepsis, unspecified organism (principal); I21.4 Non-ST elevation (NSTEMI) myocardial infarction; J15.212 Pneumonia due to Methicillin resistant Staphylococcus aureus; J96.01 Acute respiratory failure with hypoxia; G92.8 Other toxic encephalopathy; I63.9 Cerebral infarction, unspecified; J81.0 Acute pulmonary edema; R65.21 Severe sepsis with septic shock; I50.21 Acute systolic (congestive) heart failure; K92.1 Melena; D68.32 Hemorrhagic disorder due to extrinsic circulating anticoagulants; E87.0 Hyperosmolality and hypernatremia; N17.9 Acute kidney failure, unspecified; I13.0 Hypertensive heart and chronic kidney disease with heart failure and stage 1 through stage 4 chronic kidney disease, or unspecified chronic kidney disease; N39.0 Urinary tract infection, site not specified; E87.3 Alkalosis; I25.110 Atherosclerotic heart disease of native coronary artery with unstable angina pectoris; N31.9 Neuromuscular dysfunction of bladder, unspecified; Z51.5 Encounter for palliative care; R57.0 Cardiogenic shock; Z23 Encounter for immunization; Z66 Do not resuscitate; N40.0 Benign prostatic hyperplasia without lower urinary tract symptoms; N18.9 Chronic kidney disease, unspecified; K21.9 Gastro-esophageal reflux disease without esophagitis; E11.40 Type 2 diabetes mellitus with diabetic neuropathy, unspecified; E11.65 Type 2 diabetes mellitus with hyperglycemia; E11.22 Type 2 diabetes mellitus with diabetic chronic kidney disease; E87.6 Hypokalemia; E78.5 Hyperlipidemia, unspecified; G89.29 Other chronic pain; E66.9 Obesity, unspecified; Z20.822 Contact with and (suspected) exposure to COVID-19; Z68.30 Body mass index [BMI] 30.0-30.9, adult; T45.515A Adverse effect of anticoagulants, initial encounter; Z95.1 Presence of aortocoronary bypass graft; Z86.73 Personal history of transient ischemic attack (TIA), and cerebral infarction without residual deficits; Z86.718 Personal history of other venous thrombosis and embolism; Z90.49 Acquired absence of other specified parts of digestive tract; Z95.828 Presence of other vascular implants and grafts; Z98.890 Other specified postprocedural states; Z88.1 Allergy status to other antibiotic agents; Z88.2 Allergy status to sulfonamides; Z88.8 Allergy status to other drugs, medicaments and biological substances; Z79.4 Long term (current) use of insulin; Z79.82 Long term (current) use of aspirin; Z79.899 Other long term (current) drug therapy; Z78.1 Physical restraint status
CPT/HCPCS: 0241U; 31500; 33967; 36415; 36556; 36600; 51702; 70450; 71045; 76937; 80047; 80048; 80053; 80069; 81001; 82330; 82803; 82947; 83735; 83880; 84100; 84132; 84145; 84484; 85014; 85018; 85025; 85347; 85379; 85520; 87040; 87070; 87077; 87086; 87186; 87205; 90686; 93005; 93010; 93308; 93321; 93454; 93455; 93975; 94002; 94003; 94644; 94660; 94760; 96365; 96375; 96376; 99285-25; A9270; C1725; C1751; C1760; C1769; C1874; C1887; C1894; C8929; C9113; C9604; J0171; J0610; J0696; J1120; J1200; J1630; J1644; J1720; J1815; J1940; J2020; J2060; J2250; J2270; J2370; J2405; J2543; J2704; J3010; J3480; J7030; J7040; J7050; J7060; J7070; P9046; Q9957; Q9967; U0004